=== PATIENT | female | born 1990 | race Caucasian/White ===

== ENCOUNTER 2018-02-14 20:19 | Emergency (ER) | payer BC, OTHER ==
[~2018-02-14] VITALS: Ht 190.5 cm; Wt 82.3 kg
[~2018-02-14 20:19] MED LIST: ALPR0.25 PO; CELE200C PO; DRON10CA5 PO; DULO60CA7 PO; FENT1PAT76; FLUD0.1T PO; GABA300C PO; HYDR-3237 PO; HYDR5TAB PO; INSU100V11; LEVO500T47 PO; MAGN400T7 PO; METO-40 PO; METO10TA2 PO; MTH/1CAP PO; NABU750T PO; NITR100C56 PO; PHEN100C PO; POTA20TA14 PO; PREG200C PO; PROC10TA2 PO; SUBC1EAC; SULF-169; TRAM-47 PO; ZOLP10TA3 PO
[2018-02-14 20:22] VITALS: BP 131/84
[2018-02-14] MEDS ORDERED: ONDANSETRON 2MG/ML, 2ML IVPush ONE (20:30)
[2018-02-14] MEDS ORDERED: SODIUM CHLORIDE FLUSH 10ML SYR IVF ONE (20:30)
[2018-02-14] MEDS ORDERED: SODIUM CHLORIDE 0.9% 1,000ML IVBOLUS ONE (20:30)
[2018-02-14 20:52] LABS: BASOPHILS % (AUTO) 0 % (0-1); EOSINOPHILS % (AUTO) 0 % (1-7); LYMPHOCYTES # (AUTO) 0.72 x10^3/uL (1-3.4); LYMPHOCYTES % (AUTO) 7 % (22-44); MD NO; MEAN CORPUSCULAR HEMOGLOBIN 29.7 pg (27.0-34.8); MEAN CORPUSCULAR HGB CONC 34.3 g/dL (32.4-35.8); MEAN CORPUSCULAR VOLUME 86.7 fL (80-100); MEAN PLATELET VOLUME 6.8 fL (7.4-10.4); MONOCYTES # (AUTO) 0.28 x10^3/uL (0.2-0.8); MONOCYTES % (AUTO) 3 % (2-9); NEUTROPHILS # (AUTO) 8.97 x10^3/uL (1.8-6.8); NEUTROPHILS % (AUTO) 90 % (42-75); PLATELET COUNT 272 x10^3/uL (130-400); RED BLOOD COUNT 4.14 x10^6/uL (3.82-5.3); RED CELL DISTRIBUTION WIDTH 13.6 % (9.6-15.2)
[2018-02-14] MEDS ORDERED: ONDANSETRON 2MG/ML, 2ML ONE (20:54)
[2018-02-14 21:03] LABS: ALANINE AMINOTRANSFERASE 26 U/L (12-78); ALBUMIN 3.3 g/dL (3.4-5.0); ANION GAP 11 mmol/L (5-15); CALCIUM 8.5 mg/dL (8.5-10.1); CHLORIDE 107 mmol/L (98-107); CREATININE 0.82 mg/dL (0.55-1.02)
[2018-02-14 21:20] LABS: ALKALINE PHOSPHATASE 49 U/L (45-117); BILIRUBIN,TOTAL 0.4 mg/dL (0.2-1.0); TOTAL PROTEIN 7.1 g/dL (6.4-8.2)
[2018-02-14] MEDS ORDERED: FAMOTIDINE 20 MG TABLET PO ONE (22:00)
[2018-02-14] MEDS ORDERED: METOCLOPRAMIDE 5 MG/ML, 2ML IVPush ONE (22:00)
[2018-02-14] MEDS ORDERED: FAMOTIDINE 20 MG TABLET ONE (22:24)
[2018-02-14] MEDS ORDERED: METOCLOPRAMIDE 5 MG/ML, 2ML ONE (22:24)
[2018-02-14 23:54] LABS: MICROSCOPIC AUTO
[2018-02-15 00:03] LABS: CULTURE INDICATED? NO
== END 2018-02-14 23:52 | disposition home or self-care (01) ==
LOC: ED 21:35
DX: O26.891 Other specified pregnancy related conditions, first trimester (principal); O24.311 Unspecified pre-existing diabetes mellitus in pregnancy, first trimester; Z3A.13 13 weeks gestation of pregnancy; R11.2 Nausea with vomiting, unspecified; E11.9 Type 2 diabetes mellitus without complications
CPT/HCPCS: 36415; 80053; 81001; 84702; 85025; 96361; 96374; 96375; 99284; J2405; J2765; J7030

== ENCOUNTER 2018-02-27 15:41 | Inpatient (IN) | payer BC ==
[~2018-02-27] VITALS: Ht 190.5 cm; Wt 81.1 kg
[2018-02-27 16:30] VITALS: BP 166/98
[2018-02-27 17:06] LABS: BASOPHILS # (AUTO) 0.01 x10^3/uL (0-0.1); BASOPHILS % (AUTO) 0 % (0-1); EOSINOPHILS # (AUTO) 0.03 x10^3/uL (0-0.4); EOSINOPHILS % (AUTO) 1 % (1-7); LYMPHOCYTES # (AUTO) 1.38 x10^3/uL (1-3.4); LYMPHOCYTES % (AUTO) 21 % (22-44); MD NO; MEAN CORPUSCULAR HEMOGLOBIN 29.7 pg (27.0-34.8); MEAN CORPUSCULAR HGB CONC 33.7 g/dL (32.4-35.8); MEAN CORPUSCULAR VOLUME 87.9 fL (80-100); MEAN PLATELET VOLUME 6.8 fL (7.4-10.4); MONOCYTES # (AUTO) 0.52 x10^3/uL (0.2-0.8); MONOCYTES % (AUTO) 8 % (2-9); NEUTROPHILS # (AUTO) 4.69 x10^3/uL (1.8-6.8); NEUTROPHILS % (AUTO) 71 % (42-75); PLATELET COUNT 268 x10^3/uL (130-400); RED BLOOD COUNT 3.98 x10^6/uL (3.82-5.3)
[2018-02-27] MEDS ORDERED: INSULIN PUMP SQ SCH (17:30)
[2018-02-27 17:38] LABS: MICROSCOPIC AUTO
[2018-02-27 17:55] LABS: ALBUMIN 3.4 g/dL (3.4-5.0); ANION GAP 6 mmol/L (5-15); CALCIUM 9.2 mg/dL (8.5-10.1); CHLORIDE 110 mmol/L (98-107); CREATININE 0.89 mg/dL (0.55-1.02)
[2018-02-27 18:06] LABS: ALANINE AMINOTRANSFERASE 23 U/L (12-78); ALKALINE PHOSPHATASE 52 U/L (45-117); BILIRUBIN,TOTAL 0.4 mg/dL (0.2-1.0); TOTAL PROTEIN 7.3 g/dL (6.4-8.2)
[2018-02-27] MEDS ORDERED: niFEDipine ER 30 MG TABLET.ER ONE (18:55)
[2018-02-27] MEDS ORDERED: niFEDipine ER 30 MG TABLET.ER PO ONE (19:00)
[2018-02-27] MEDS ORDERED: PRENATAL VIT/IRON/FA 1 EACH TABLET PO SCH (21:00)
[2018-02-27] MEDS: ASPIRIN 81 MG TABLET CHEW HOMEMEDPO SCH (22:42)
[2018-02-27] MEDS: METOCLOPRAMIDE 10MG TABLET HOMEMEDPO PRN (22:42)
[2018-02-28] MEDS ORDERED: ACETAMINOPHEN 325 MG TABLET ONE (06:47)
[2018-02-28] MEDS: ACETAMINOPHEN 325 MG TABLET PO PRN (06:48)
[2018-02-28 07:47] VITALS: BP 132/71
[2018-02-28] MEDS ORDERED: niFEDipine ER 30 MG TABLET.ER ONE (08:42)
[2018-02-28] MEDS: niFEDipine ER 30 MG TABLET.ER PO SCH ×2 (08:57→17:09)
[2018-02-28] MEDS ORDERED: PRENATAL VIT/IRON/FA 1 EACH TABLET PO SCH (09:00)
[2018-02-28] MEDS: METOCLOPRAMIDE 10MG TABLET HOMEMEDPO PRN ×3 (09:30→22:44)
[2018-02-28 09:34] VITALS: BP 145/91
[2018-02-28] MEDS: ASPIRIN 81 MG TABLET CHEW HOMEMEDPO SCH (21:00)
[2018-02-28] MEDS: PRENATAL VIT/IRON/FA 1 EACH TABLET PO SCH (22:44)
[2018-03-01] MEDS ORDERED: D5%-LACTATED RINGERS 1,000 ML IV SCH (06:00)
[2018-03-01 06:28] LABS: MICROSCOPIC AUTO
[2018-03-01] MEDS: METOCLOPRAMIDE 10MG TABLET HOMEMEDPO PRN ×3 (08:58→21:57)
[2018-03-01] MEDS ORDERED: niFEDipine ER 30 MG TABLET.ER ONE (17:12)
[2018-03-01] MEDS: niFEDipine ER 30 MG TABLET.ER PO SCH (17:13)
[2018-03-01] MEDS: SODIUM CHLORIDE FLUSH 3ML SYRINGE IVF SCH (21:00)
[2018-03-01] MEDS: ASPIRIN 81 MG TABLET CHEW HOMEMEDPO SCH (21:57)
[2018-03-01] MEDS: PRENATAL VIT/IRON/FA 1 EACH TABLET PO SCH (21:57)
[2018-03-02] MEDS: SODIUM CHLORIDE FLUSH 3ML SYRINGE IVF SCH ×2 (09:00→21:00)
[2018-03-02] MEDS ORDERED: niFEDipine ER 30 MG TABLET.ER ONE (18:55)
[2018-03-02] MEDS: niFEDipine ER 30 MG TABLET.ER PO SCH (18:58)
[2018-03-02] MEDS: PRENATAL VIT/IRON/FA 1 EACH TABLET PO SCH (22:11)
[2018-03-02] MEDS: METOCLOPRAMIDE 10MG TABLET HOMEMEDPO PRN (22:11)
[2018-03-03] MEDS: METOCLOPRAMIDE 10MG TABLET HOMEMEDPO PRN ×2 (06:20→23:20)
[2018-03-03 07:48] VITALS: BP 142/94
[2018-03-03] MEDS: SODIUM CHLORIDE FLUSH 3ML SYRINGE IVF SCH ×2 (09:00→21:00)
[2018-03-03] MEDS ORDERED: niFEDipine ER 30 MG TABLET.ER ONE (18:03)
[2018-03-03] MEDS: niFEDipine ER 30 MG TABLET.ER PO SCH (18:07)
[2018-03-03] MEDS: PRENATAL VIT/IRON/FA 1 EACH TABLET PO SCH (23:20)
[2018-03-03] MEDS: ASPIRIN 81 MG TABLET CHEW HOMEMEDPO SCH (23:20)
[2018-03-04] MEDS: SODIUM CHLORIDE FLUSH 3ML SYRINGE IVF SCH ×2 (09:00→21:00)
[2018-03-04] MEDS: METOCLOPRAMIDE 10MG TABLET HOMEMEDPO PRN ×2 (09:00→23:31)
[2018-03-04] MEDS ORDERED: niFEDipine ER 30 MG TABLET.ER ONE (19:15)
[2018-03-04] MEDS: niFEDipine ER 30 MG TABLET.ER PO SCH (19:17)
[2018-03-04] MEDS ORDERED: ACETAMINOPHEN 325 MG TABLET ONE (23:26)
[2018-03-04] MEDS: ASPIRIN 81 MG TABLET CHEW HOMEMEDPO SCH (23:30)
[2018-03-04] MEDS: ACETAMINOPHEN 325 MG TABLET PO PRN (23:30)
[2018-03-04] MEDS: PRENATAL VIT/IRON/FA 1 EACH TABLET PO SCH (23:31)
[2018-03-05] MEDS: METOCLOPRAMIDE 10MG TABLET HOMEMEDPO PRN ×2 (08:05→21:39)
[2018-03-05] MEDS: ASPIRIN 81 MG TABLET CHEW HOMEMEDPO SCH ×2 (08:07→21:39)
[2018-03-05] MEDS: SODIUM CHLORIDE FLUSH 3ML SYRINGE IVF SCH ×2 (10:15→21:39)
[2018-03-05] MEDS ORDERED: niFEDipine ER 30 MG TABLET.ER ONE (17:47)
[2018-03-05] MEDS: niFEDipine ER 30 MG TABLET.ER PO SCH (18:08)
[2018-03-05] MEDS: PRENATAL VIT/IRON/FA 1 EACH TABLET PO SCH (21:39)
[2018-03-06] MEDS: METOCLOPRAMIDE 10MG TABLET HOMEMEDPO PRN (07:21)
[2018-03-06] MEDS ORDERED: niFEDipine ER 30 MG TABLET.ER ONE (17:49)
[2018-03-06] MEDS: niFEDipine ER 30 MG TABLET.ER PO SCH (17:54)
[2018-03-06] MEDS: PRENATAL VIT/IRON/FA 1 EACH TABLET PO SCH (22:07)
[2018-03-06] MEDS: ASPIRIN 81 MG TABLET CHEW HOMEMEDPO SCH (22:07)
[2018-03-07] MEDS: METOCLOPRAMIDE 10MG TABLET HOMEMEDPO PRN (00:06)
[2018-03-07 09:12] VITALS: BP 121/81
[2018-03-07] MEDS: D5%-LACTATED RINGERS 1,000 ML IV SCH ×2 (12:00→22:00)
[2018-03-07] MEDS ORDERED: D5%-LACTATED RINGERS 1,000 ML IV SCH (12:00)
[2018-03-07] MEDS ORDERED: niFEDipine ER 30 MG TABLET.ER ONE (18:05)
[2018-03-07] MEDS: niFEDipine ER 30 MG TABLET.ER PO SCH (18:13)
[2018-03-07 20:15] VITALS: BP 135/90
[2018-03-07] MEDS: PRENATAL VIT/IRON/FA 1 EACH TABLET PO SCH (21:00)
[2018-03-07] MEDS: ASPIRIN 81 MG TABLET CHEW HOMEMEDPO SCH (21:00)
[2018-03-08] MEDS: METOCLOPRAMIDE 10MG TABLET HOMEMEDPO PRN (00:09)
[2018-03-08 07:00] VITALS: BP 122/79
[2018-03-08] MEDS ORDERED: METO10TA82 PO (10:58)
[2018-03-08] MEDS ORDERED: NIFE30TA2 PO (11:01)
[2018-03-08] MEDS ORDERED: GLUC1KIT IM (11:06)
== END 2018-03-08 11:40 | disposition home or self-care (01) | DRG 832 ==
LOC: LDOP 15:41 → LDIP 16:03
PROVIDERS: ADMIT Obstetrics & Gynecology; ATTEND Obstetrics & Gynecology
DX: O21.0 Mild hyperemesis gravidarum (principal); O16.2 Unspecified maternal hypertension, second trimester; O24.011 Pre-existing type 1 diabetes mellitus, in pregnancy, first trimester; E10.649 Type 1 diabetes mellitus with hypoglycemia without coma; Z3A.15 15 weeks gestation of pregnancy; Z96.41 Presence of insulin pump (external) (internal); E10.21 Type 1 diabetes mellitus with diabetic nephropathy; E10.319 Type 1 diabetes mellitus with unspecified diabetic retinopathy without macular edema; Z23 Encounter for immunization
CPT/HCPCS: 36415; J7121; 80053; 81001; 82947; 82962; 85025; 87086; 90656; G0378

== ENCOUNTER 2018-06-17 15:12 | Inpatient (IN) | payer BC ==
[~2018-06-17] VITALS: Ht 190.5 cm; Wt 94.4 kg
[~2018-06-17 15:12] MED LIST changes: +GLUC1KIT IM; +METO10TA82 PO; +NIFE30TA2 PO
[2018-06-17 15:45] VITALS: BP 175/98
[2018-06-17 16:27] LABS: MICROSCOPIC INDICATED
[2018-06-17 16:48] LABS: BASOPHILS # (AUTO) 0.02 x10^3/uL (0-0.1); BASOPHILS % (AUTO) 0 % (0-1); EOSINOPHILS # (AUTO) 0.02 x10^3/uL (0-0.4); EOSINOPHILS % (AUTO) 0 % (1-7); LYMPHOCYTES # (AUTO) 1.33 x10^3/uL (1-3.4); LYMPHOCYTES % (AUTO) 22 % (22-44); MD NO; MEAN CORPUSCULAR HEMOGLOBIN 31.3 pg (27.0-34.8); MEAN CORPUSCULAR HGB CONC 34.4 g/dL (32.4-35.8); MEAN CORPUSCULAR VOLUME 91.2 fL (80-100); MEAN PLATELET VOLUME 7.7 fL (7.4-10.4); MONOCYTES # (AUTO) 0.59 x10^3/uL (0.2-0.8); MONOCYTES % (AUTO) 10 % (2-9); NEUTROPHILS # (AUTO) 4.09 x10^3/uL (1.8-6.8); NEUTROPHILS % (AUTO) 68 % (42-75); PLATELET COUNT 186 x10^3/uL (130-400); RED BLOOD COUNT 3.25 x10^6/uL (3.82-5.3); RED CELL DISTRIBUTION WIDTH 13.1 % (9.6-15.2)
[2018-06-17 16:52] LABS: ALANINE AMINOTRANSFERASE 30 U/L (12-78); ALBUMIN 2.3 g/dL (3.4-5.0); ANION GAP 5 mmol/L (5-15); BILIRUBIN, DIRECT 0.1 mg/dL (0.1-0.2); CALCIUM 8.4 mg/dL (8.5-10.1); CHLORIDE 114 mmol/L (98-107); CREATININE 1.07 mg/dL (0.55-1.02)
[2018-06-17 16:56] LABS: ALKALINE PHOSPHATASE 71 U/L (45-117); BILIRUBIN,TOTAL 0.8 mg/dL (0.2-1.0)
[2018-06-17] MEDS: SODIUM CHLORIDE FLUSH 3ML SYRINGE IVF SCH (17:20)
[2018-06-17 17:25] LABS: ACETONE, SERUM Small (20mg/dL) mg/dL (Negative)
[2018-06-17] MEDS ORDERED: MAGNESIUM SULF. PMX 20GM/500ML 500 ML IV ONE (17:59)
[2018-06-17] MEDS ORDERED: MAGNESIUM SULFATE PMX 4GM/100M 100 ML IVPB ONE (18:00)
[2018-06-17] MEDS ORDERED: MAGNESIUM SULF. PMX 20GM/500ML 500 ML IV PRN (18:00)
[2018-06-17] MEDS ORDERED: MAGNESIUM SULF. PMX 20GM/500ML 500 ML IV SCH (18:00)
[2018-06-17] MEDS ORDERED: hydrALAzine 20 MG/ML, 1ML IVPush ONE (18:30)
[2018-06-17] MEDS ORDERED: LABETALOL 5MG/ML, 20ML IVPush PRN ×3 (18:30)
[2018-06-17] MEDS ORDERED: NIFEDIPINE 60 MG HOMEMEDPO SCH (21:00)
[2018-06-17] MEDS ORDERED: niFEDipine ER 60 MG TABLET.ER PO SCH (21:00)
[2018-06-17] MEDS: NIFEDIPINE 30 MG HOMEMEDPO SCH (22:10)
[2018-06-18] MEDS ORDERED: MAGNESIUM SULF. PMX 20GM/500ML 500 ML IV ONE ×2 (02:17→14:04)
[2018-06-18] MEDS: LACTATED RINGERS 1,000 ML IV SCH ×2 (02:20→16:27)
[2018-06-18 07:29] VITALS: BP 153/93
[2018-06-18] MEDS ORDERED: METOCLOPRAMIDE 10MG TABLET PO PRN (08:30)
[2018-06-18] MEDS ORDERED: SODIUM CHLORIDE NASAL SPRAY 45ML BOTTLE NAS PRN (09:00)
[2018-06-18] MEDS: LORATADINE 10 MG TABLET PO PRN (09:55)
[2018-06-18] MEDS: MAGNESIUM SULF. PMX 20GM/500ML 500 ML IV SCH (14:34)
[2018-06-18] MEDS: SODIUM CHLORIDE FLUSH 3ML SYRINGE IVF SCH ×2 (19:30→21:00)
[2018-06-18] MEDS ORDERED: ASPIRIN 325 MG TABLET PO SCH (21:00)
[2018-06-18] MEDS: ASPIRIN 81 MG TABLET EC HOMEMEDPO SCH (22:19)
[2018-06-18] MEDS: PRENATAL VIT/IRON/FA 1 EACH TABLET PO SCH (22:19)
[2018-06-18] MEDS: NIFEDIPINE 30 MG HOMEMEDPO SCH (22:20)
[2018-06-18] MEDS: METOCLOPRAMIDE 10MG TABLET PO PRN (22:20)
[2018-06-19] MEDS ORDERED: MAGNESIUM SULF. PMX 20GM/500ML 500 ML IV ONE (03:51)
[2018-06-19] MEDS: MAGNESIUM SULF. PMX 20GM/500ML 500 ML IV SCH (03:53)
[2018-06-19] MEDS: LACTATED RINGERS 1,000 ML IV SCH (03:54)
[2018-06-19] MEDS: niFEDipine ER 30 MG TABLET.ER PO SCH ×2 (06:59→09:00)
[2018-06-19] MEDS: LORATADINE 10 MG TABLET PO PRN (07:26)
[2018-06-19] MEDS: SODIUM CHLORIDE FLUSH 3ML SYRINGE IVF SCH ×2 (09:00→21:00)
[2018-06-19] MEDS ORDERED: niFEDipine ER 30 MG TABLET.ER PO ONE (19:30)
[2018-06-19] MEDS ORDERED: DIPHENHYDRAMINE 25 MG CAPSULE PO PRN (21:00)
[2018-06-19] MEDS: niFEDipine ER 30 MG TABLET.ER HOMEMEDPO SCH (21:00)
[2018-06-19] MEDS ORDERED: hydrALAzine 20 MG/ML, 1ML IVPush ONE ×2 (22:00)
[2018-06-19] MEDS ORDERED: LABETALOL 5MG/ML 40ML VIAL IVPush ONE (22:00)
[2018-06-19] MEDS: ASPIRIN 81 MG TABLET EC HOMEMEDPO SCH (22:05)
[2018-06-19] MEDS: PRENATAL VIT/IRON/FA 1 EACH TABLET PO SCH (22:06)
[2018-06-20] MEDS ORDERED: niFEDipine ER 60 MG TABLET.ER PO SCH (09:00)
[2018-06-20] MEDS: SODIUM CHLORIDE FLUSH 3ML SYRINGE IVF SCH ×2 (09:00→21:00)
[2018-06-20] MEDS: niFEDipine ER 30 MG TABLET.ER PO SCH (09:00)
[2018-06-20 09:11] VITALS: BP 151/90
[2018-06-20] MEDS: LORATADINE 10 MG TABLET PO PRN (09:57)
[2018-06-20] MEDS: ASPIRIN 81 MG TABLET EC HOMEMEDPO SCH (22:53)
[2018-06-20] MEDS: niFEDipine ER 30 MG TABLET.ER HOMEMEDPO SCH (22:53)
[2018-06-20] MEDS: PRENATAL VIT/IRON/FA 1 EACH TABLET PO SCH (22:54)
[2018-06-21] MEDS: SODIUM CHLORIDE FLUSH 3ML SYRINGE IVF SCH (08:00)
[2018-06-21] MEDS ORDERED: niFEDipine ER 60 MG TABLET.ER PO ONE (08:55)
[2018-06-21] MEDS: LORATADINE 10 MG TABLET PO PRN (11:06)
[2018-06-21] MEDS: PRENATAL VIT/IRON/FA 1 EACH TABLET PO SCH (11:06)
[2018-06-21] MEDS: ASPIRIN 81 MG TABLET EC HOMEMEDPO SCH (11:07)
[2018-06-21] MEDS: METOCLOPRAMIDE 10MG TABLET PO PRN (11:07)
[2018-06-21] MEDS ORDERED: hydrALAzine 20 MG/ML, 1ML IV ONE (17:00)
[2018-06-21] MEDS ORDERED: MAGNESIUM SULFATE PMX 4GM/100M 100 ML ONE (18:21)
[2018-06-21] MEDS ORDERED: MAGNESIUM SULF. PMX 20GM/500ML 500 ML IV ONE (18:21)
[2018-06-21] MEDS: MAGNESIUM SULF. PMX 20GM/500ML 500 ML IV SCH (18:49)
[2018-06-21] MEDS: LACTATED RINGERS 1,000 ML IV SCH (18:50)
[2018-06-21] MEDS ORDERED: ONDANSETRON 2MG/ML, 2ML ONE ×2 (18:53→23:01)
[2018-06-21] MEDS: ONDANSETRON 2MG/ML, 2ML IVPush PRN ×2 (18:55→23:02)
[2018-06-21] MEDS ORDERED: MAGNESIUM SULFATE PMX 4GM/100M 100 ML IVPB ONE (19:00)
[2018-06-21 19:17] LABS: BASOPHILS # (AUTO) 0.02 x10^3/uL (0-0.1); BASOPHILS % (AUTO) 0 % (0-1); EOSINOPHILS # (AUTO) 0.09 x10^3/uL (0-0.4); EOSINOPHILS % (AUTO) 2 % (1-7); LYMPHOCYTES # (AUTO) 1.19 x10^3/uL (1-3.4); LYMPHOCYTES % (AUTO) 20 % (22-44); MD NO; MEAN CORPUSCULAR HEMOGLOBIN 31.7 pg (27.0-34.8); MEAN CORPUSCULAR HGB CONC 34.8 g/dL (32.4-35.8); MEAN PLATELET VOLUME 7.7 fL (7.4-10.4); MONOCYTES # (AUTO) 0.74 x10^3/uL (0.2-0.8); MONOCYTES % (AUTO) 13 % (2-9); NEUTROPHILS # (AUTO) 3.79 x10^3/uL (1.8-6.8); NEUTROPHILS % (AUTO) 65 % (42-75); PLATELET COUNT 161 x10^3/uL (130-400); RED BLOOD COUNT 3.55 x10^6/uL (3.82-5.3); RED CELL DISTRIBUTION WIDTH 13.5 % (9.6-15.2)
[2018-06-21 19:25] LABS: ALANINE AMINOTRANSFERASE 60 U/L (12-78); ALBUMIN 2.3 g/dL (3.4-5.0); ANION GAP 7 mmol/L (5-15); CALCIUM 8.9 mg/dL (8.5-10.1); CHLORIDE 113 mmol/L (98-107); CREATININE 0.98 mg/dL (0.55-1.02)
[2018-06-21 19:27] LABS: ALKALINE PHOSPHATASE 92 U/L (45-117); BILIRUBIN,TOTAL 0.6 mg/dL (0.2-1.0); TOTAL PROTEIN 6.2 g/dL (6.4-8.2)
[2018-06-21] MEDS: niFEDipine ER 30 MG TABLET.ER HOMEMEDPO SCH (20:59)
[2018-06-21 21:21] LABS: ACETONE, URINE Small (20mg/dL) (Negative)
[2018-06-22] MEDS ORDERED: METOCLOPRAMIDE 5 MG/ML, 2ML ONE ×3 (00:14→13:26)
[2018-06-22] MEDS ORDERED: METOCLOPRAMIDE 5 MG/ML, 2ML IVPush ONE ×2 (00:30→10:00)
[2018-06-22 00:33] LABS: ACETONE, URINE Moderate(40mg/dL) (Negative)
[2018-06-22] MEDS ORDERED: D5%-LACTATED RINGERS 1,000 ML IV SCH ×3 (00:45→10:30)
[2018-06-22] MEDS: PROMETHAZINE 25 MG/ML, 1ML IM PRN ×3 (01:47→20:07)
[2018-06-22 03:31] LABS: ACETONE, URINE Moderate(40mg/dL) (Negative)
[2018-06-22 05:27] LABS: ACETONE, URINE Moderate(40mg/dL) (Negative)
[2018-06-22] MEDS ORDERED: ONDANSETRON 2MG/ML, 2ML ONE ×4 (05:35→15:59)
[2018-06-22] MEDS ORDERED: MAGNESIUM SULF. PMX 20GM/500ML 500 ML IV ONE (05:36)
[2018-06-22] MEDS: ONDANSETRON 2MG/ML, 2ML IVPush PRN ×3 (05:38→22:13)
[2018-06-22] MEDS: MAGNESIUM SULF. PMX 20GM/500ML 500 ML IV SCH (05:40)
[2018-06-22 07:34] LABS: ALANINE AMINOTRANSFERASE 60 U/L (12-78); ALBUMIN 2.1 g/dL (3.4-5.0); ANION GAP 15 mmol/L (5-15); CALCIUM 8.3 mg/dL (8.5-10.1); CHLORIDE 108 mmol/L (98-107); CREATININE 1.24 mg/dL (0.55-1.02)
[2018-06-22 07:37] LABS: ALKALINE PHOSPHATASE 89 U/L (45-117); BILIRUBIN,TOTAL 0.8 mg/dL (0.2-1.0); TOTAL PROTEIN 6.1 g/dL (6.4-8.2)
[2018-06-22] MEDS: PRENATAL VIT/IRON/FA 1 EACH TABLET PO SCH (09:00)
[2018-06-22] MEDS ORDERED: REGULAR INSULIN 62.5 UNITS in SODIUM CHLORIDE 0.9% 249.375 ML IV PRN (10:30)
[2018-06-22 12:42] LABS: ALBUMIN 2.1 g/dL (3.4-5.0); ANION GAP 15 mmol/L (5-15); CALCIUM 8.3 mg/dL (8.5-10.1); CHLORIDE 108 mmol/L (98-107)
[2018-06-22 12:44] LABS: ALANINE AMINOTRANSFERASE 59 U/L (12-78); ALKALINE PHOSPHATASE 90 U/L (45-117); BILIRUBIN,TOTAL 0.8 mg/dL (0.2-1.0); CREATININE 1.42 mg/dL (0.55-1.02); TOTAL PROTEIN 6.1 g/dL (6.4-8.2)
[2018-06-22 13:19] LABS: BASOPHILS # (AUTO) 0.01 x10^3/uL (0-0.1); BASOPHILS % (AUTO) 0 % (0-1); EOSINOPHILS % (AUTO) 0 % (1-7); LYMPHOCYTES # (AUTO) 0.93 x10^3/uL (1-3.4); LYMPHOCYTES % (AUTO) 7 % (22-44); MD SCAN; MEAN CORPUSCULAR HEMOGLOBIN 30.6 pg (27.0-34.8); MEAN CORPUSCULAR HGB CONC 33.2 g/dL (32.4-35.8); MEAN CORPUSCULAR VOLUME 92.1 fL (80-100); MEAN PLATELET VOLUME 8.1 fL (7.4-10.4); MONOCYTES # (AUTO) 0.67 x10^3/uL (0.2-0.8); MONOCYTES % (AUTO) 5 % (2-9); NEUTROPHILS % (AUTO) 89 % (42-75); PLATELET COUNT 195 x10^3/uL (130-400); RED BLOOD COUNT 3.55 x10^6/uL (3.82-5.3); RED CELL DISTRIBUTION WIDTH 13.7 % (9.6-15.2)
[2018-06-22] MEDS ORDERED: NEWBORN KIT ONE (13:24)
[2018-06-22] MEDS ORDERED: OXYTOCIN 30U/ 0.9% NaCL 500ML 500 ML ONE (13:24)
[2018-06-22] MEDS ORDERED: SODIUM CITRATE/CITRIC ACID 30 ML UDC ONE (13:26)
[2018-06-22] MEDS ORDERED: METOCLOPRAMIDE 5 MG/ML, 2ML IV ONE (13:30)
[2018-06-22] MEDS ORDERED: LACTATED RINGERS 1,000 ML IVBOLUS ONE (13:30)
[2018-06-22] MEDS ORDERED: ONDANSETRON 2MG/ML, 2ML IVPush ONE (13:30)
[2018-06-22] MEDS ORDERED: SODIUM CITRATE/CITRIC ACID 30 ML UDC PO ONE (13:30)
[2018-06-22] MEDS: LACTATED RINGERS 1,000 ML IV SCH (13:33)
[2018-06-22] MEDS ORDERED: DEXAMETHASONE 4 MG/ML, 1ML ONE (13:58)
[2018-06-22] MEDS ORDERED: KETOROLAC 30 MG/1 ML ONE (13:58)
[2018-06-22] MEDS ORDERED: FENTANYL PF 100 MCG/2ML ONE ×3 (13:58→15:59)
[2018-06-22] MEDS ORDERED: OXYTOCIN 10 UNITS/ML, 1ML ONE (13:58)
[2018-06-22] MEDS ORDERED: PHENYLEPHRINE 10 MG/ML ONE (13:58)
[2018-06-22] MEDS ORDERED: CEFAZOLIN 1,000 MG ONE (13:58)
[2018-06-22] MEDS ORDERED: EPHEDRINE 50 MG/ML, 1ML ONE (13:58)
[2018-06-22] MEDS ORDERED: SODIUM BICARBONATE 1 MEQ/ML, 50ML VIAL ONE (13:58)
[2018-06-22] MEDS ORDERED: HYDROcodone/APAP 7.5-325MG/15ML UDC PO PRN (14:00)
[2018-06-22] MEDS ORDERED: FENTANYL PF 100 MCG/2ML IV PRN ×2 (14:00→16:30)
[2018-06-22] MEDS ORDERED: MEPERIDINE/PF 25MG/0.5ML IVPush PRN (14:00)
[2018-06-22] MEDS ORDERED: ALBUTEROL SULFATE 2.5 MG/3 ML NPPB PRN (14:00)
[2018-06-22] MEDS ORDERED: hydrALAzine 20 MG/ML, 1ML IV PRN (14:00)
[2018-06-22] MEDS ORDERED: ONDANSETRON 2MG/ML, 2ML IVPush PRN (14:00)
[2018-06-22] MEDS ORDERED: LABETALOL 5MG/ML, 20ML IV PRN (14:00)
[2018-06-22] MEDS ORDERED: EPHEDRINE 50 MG/ML, 1ML IVPush PRN (14:00)
[2018-06-22] MEDS ORDERED: PROMETHAZINE 25 MG/ML, 1ML IV PRN (14:00)
[2018-06-22] MEDS ORDERED: OXYcodone 5 MG/5 ML ORAL.SOL UDC PO PRN (14:00)
[2018-06-22] MEDS ORDERED: SUCCINYLCHOLINE 20 MG/ML, 10ML ONE (14:29)
[2018-06-22] MEDS ORDERED: PROPOFOL 10 MG/ML, 20ML ONE ×2 (14:29)
[2018-06-22] MEDS ORDERED: LIDOCAINE-MPF 2% ,5ML ONE (14:29)
[2018-06-22] MEDS ORDERED: SODIUM CHLORIDE 0.9% 1,000 ML IV SCH (14:30)
[2018-06-22] MEDS: SODIUM CHLORIDE 0.9% 1,000 ML IV SCH ×2 (14:33→18:00)
[2018-06-22] MEDS ORDERED: HYDROmorphone 1 MG/ML, 1ML ONE ×2 (16:00→16:42)
[2018-06-22] MEDS: HYDROmorphone 2 MG/ML, 1ML IVPush PRN ×7 (16:07→17:00)
[2018-06-22] MEDS ORDERED: INSULIN LISPRO 100 UNITS/ML, PEN SQ-INSULIN SCH (16:30)
[2018-06-22] MEDS ORDERED: LABETALOL 5MG/ML, 20ML IVPush PRN (16:30)
[2018-06-22] MEDS ORDERED: MISOPROSTOL 200 MCG TABLET PR PRN (16:30)
[2018-06-22 16:35] LABS: O2 FLOW 2 L/min
[2018-06-22 16:45] LABS: ALANINE AMINOTRANSFERASE 50 U/L (12-78); ANION GAP 14 mmol/L (5-15); CALCIUM 7.6 mg/dL (8.5-10.1); CHLORIDE 111 mmol/L (98-107); CREATININE 1.42 mg/dL (0.55-1.02)
[2018-06-22 16:47] LABS: ALKALINE PHOSPHATASE 78 U/L (45-117); BILIRUBIN,TOTAL 0.7 mg/dL (0.2-1.0); TOTAL PROTEIN 5.6 g/dL (6.4-8.2)
[2018-06-22 17:09] LABS: ACETONE, SERUM Large (80mg/dL) mg/dL (Negative)
[2018-06-22] MEDS: INSULIN LISPRO 100 UNITS/ML, PEN SQ-INSULIN SCH ×2 (18:00→20:30)
[2018-06-22] MEDS: OXYTOCIN 30U/ 0.9% NaCL 500ML 500 ML IV SCH (18:27)
[2018-06-22] MEDS ORDERED: HYDROmorphone 2 MG/ML, 1ML ONE (19:58)
[2018-06-22] MEDS ORDERED: HYDROmorphone 1 MG/ML, 1ML IV PRN (20:00)
[2018-06-22] MEDS ORDERED: OXYcodone/APAP 5/325MG TABLET PO PRN (20:00)
[2018-06-22] MEDS ORDERED: INSULIN GLARGINE 100 UNITS/ML, PEN SQ-INSULIN SCH (21:00)
[2018-06-22] MEDS: niFEDipine ER 90 MG TAB.ER.24 HOMEMEDPO SCH (21:00)
[2018-06-22] MEDS ORDERED: HYDROmorphone 2 MG/ML, 1ML IV PRN (22:00)
[2018-06-23] MEDS: INSULIN LISPRO 100 UNITS/ML, PEN SQ-INSULIN SCH ×2 (00:30→04:30)
[2018-06-23] MEDS: SODIUM CHLORIDE 0.9% 1,000 ML IV SCH ×3 (00:32→22:33)
[2018-06-23] MEDS: OXYTOCIN 30U/ 0.9% NaCL 500ML 500 ML IV SCH ×2 (02:27→12:27)
[2018-06-23] MEDS: METOCLOPRAMIDE 5 MG/ML, 2ML IVPush PRN ×4 (02:43→21:28)
[2018-06-23 04:00] VITALS: BP 168/102
[2018-06-23] MEDS: ONDANSETRON 2MG/ML, 2ML IVPush PRN ×4 (04:33→23:17)
[2018-06-23 07:00] LABS: BASOPHILS # (AUTO) 0.01 x10^3/uL (0-0.1); BASOPHILS % (AUTO) 0 % (0-1); EOSINOPHILS % (AUTO) 0 % (1-7); LYMPHOCYTES # (AUTO) 0.76 x10^3/uL (1-3.4); LYMPHOCYTES % (AUTO) 5 % (22-44); MD NO; MEAN CORPUSCULAR HEMOGLOBIN 31.7 pg (27.0-34.8); MEAN CORPUSCULAR HGB CONC 34.3 g/dL (32.4-35.8); MEAN CORPUSCULAR VOLUME 92.4 fL (80-100); MEAN PLATELET VOLUME 7.4 fL (7.4-10.4); MONOCYTES # (AUTO) 1.36 x10^3/uL (0.2-0.8); MONOCYTES % (AUTO) 10 % (2-9); NEUTROPHILS # (AUTO) 12.16 x10^3/uL (1.8-6.8); NEUTROPHILS % (AUTO) 85 % (42-75); PLATELET COUNT 240 x10^3/uL (130-400); RED BLOOD COUNT 3.48 x10^6/uL (3.82-5.3)
[2018-06-23 07:04] LABS: ALANINE AMINOTRANSFERASE 50 U/L (12-78); ALBUMIN 2.1 g/dL (3.4-5.0); ANION GAP 4 mmol/L (5-15); CALCIUM 7.5 mg/dL (8.5-10.1); CHLORIDE 115 mmol/L (98-107)
[2018-06-23 07:06] LABS: ALKALINE PHOSPHATASE 84 U/L (45-117); BILIRUBIN,TOTAL 0.6 mg/dL (0.2-1.0); TOTAL PROTEIN 5.9 g/dL (6.4-8.2)
[2018-06-23] MEDS: PRENATAL VIT/IRON/FA 1 EACH TABLET PO SCH (09:00)
[2018-06-23] MEDS: PROMETHAZINE 25 MG/ML, 1ML IM PRN ×2 (11:11→21:28)
[2018-06-23 11:30] VITALS: BP 167/93
[2018-06-23 12:25] VITALS: BP 133/77
[2018-06-23] MEDS ORDERED: SCOPOLAMINE PATCH, 1.5MG PATCH.TD72 TD ONE (15:30)
[2018-06-23] MEDS: OMEPRAZOLE 20 MG CAPSULE.DR PO SCH (16:45)
[2018-06-23 19:40] VITALS: BP 141/87
[2018-06-23] MEDS ORDERED: niFEDipine ER 30 MG TABLET.ER ONE (20:55)
[2018-06-23] MEDS ORDERED: niFEDipine ER 60 MG TABLET.ER PO ONE (20:55)
[2018-06-23] MEDS: niFEDipine ER 90 MG TAB.ER.24 HOMEMEDPO SCH (21:00)
[2018-06-23] MEDS ORDERED: MEPERIDINE/PF 50 MG/ML IM PRN (22:00)
[2018-06-23] MEDS ORDERED: HYDROcodone/APAP 10/325 MG TABLET PO PRN (22:30)
[2018-06-23 23:55] VITALS: BP 166/108
[2018-06-24] VITALS (7 sets, daily range): BP systolic 122–168; BP diastolic 78–115
[2018-06-24 00:39] LABS: BASOPHILS % (AUTO) 0 % (0-1); EOSINOPHILS # (AUTO) 0.27 x10^3/uL (0-0.4); EOSINOPHILS % (AUTO) 2 % (1-7); LYMPHOCYTES % (AUTO) 5 % (22-44); MD NO; MEAN CORPUSCULAR HEMOGLOBIN 31.5 pg (27.0-34.8); MEAN CORPUSCULAR HGB CONC 34.2 g/dL (32.4-35.8); MEAN CORPUSCULAR VOLUME 92.1 fL (80-100); MEAN PLATELET VOLUME 6.9 fL (7.4-10.4); MONOCYTES # (AUTO) 1.04 x10^3/uL (0.2-0.8); MONOCYTES % (AUTO) 9 % (2-9); NEUTROPHILS # (AUTO) 9.79 x10^3/uL (1.8-6.8); NEUTROPHILS % (AUTO) 84 % (42-75); PLATELET COUNT 233 x10^3/uL (130-400); RED BLOOD COUNT 3.25 x10^6/uL (3.82-5.3); RED CELL DISTRIBUTION WIDTH 13.8 % (9.6-15.2)
[2018-06-24 00:50] LABS: ALBUMIN 1.9 g/dL (3.4-5.0); ANION GAP 5 mmol/L (5-15); CALCIUM 7.1 mg/dL (8.5-10.1); CHLORIDE 116 mmol/L (98-107)
[2018-06-24 00:54] LABS: ALANINE AMINOTRANSFERASE 51 U/L (12-78); ALKALINE PHOSPHATASE 76 U/L (45-117); BILIRUBIN,TOTAL 0.4 mg/dL (0.2-1.0); CREATININE 1.16 mg/dL (0.55-1.02); TOTAL PROTEIN 5.6 g/dL (6.4-8.2)
[2018-06-24 00:55] LABS: MICROSCOPIC INDICATED
[2018-06-24 01:09] LABS: ACETONE, SERUM Negative (Negative)
[2018-06-24] MEDS: LABETALOL 5 MG/ML SYRINGE IVPush PRN ×2 (01:12→15:33)
[2018-06-24] MEDS: D5%-LACTATED RINGERS 1,000 ML IV SCH ×2 (01:54→10:00)
[2018-06-24] MEDS: METOCLOPRAMIDE 5 MG/ML, 2ML IVPush PRN ×3 (03:28→21:49)
[2018-06-24] MEDS: ONDANSETRON 2MG/ML, 2ML IVPush PRN (05:36)
[2018-06-24] MEDS: SODIUM CHLORIDE 0.9% 1,000 ML IV SCH (06:33)
[2018-06-24] MEDS ORDERED: chlorPROMAZINE 25 MG/ML, 2ML IVPush PRN (09:30)
[2018-06-24 10:27] LABS: BASOPHILS # (AUTO) 0.01 x10^3/uL (0-0.1); BASOPHILS % (AUTO) 0 % (0-1); EOSINOPHILS % (AUTO) 0 % (1-7); LYMPHOCYTES % (AUTO) 9 % (22-44); MD NO; MEAN CORPUSCULAR HEMOGLOBIN 30.4 pg (27.0-34.8); MEAN CORPUSCULAR HGB CONC 32.7 g/dL (32.4-35.8); MEAN CORPUSCULAR VOLUME 93.1 fL (80-100); MEAN PLATELET VOLUME 6.8 fL (7.4-10.4); MONOCYTES # (AUTO) 1.14 x10^3/uL (0.2-0.8); MONOCYTES % (AUTO) 11 % (2-9); NEUTROPHILS # (AUTO) 8.34 x10^3/uL (1.8-6.8); NEUTROPHILS % (AUTO) 80 % (42-75); PLATELET COUNT 248 x10^3/uL (130-400); RED BLOOD COUNT 3.01 x10^6/uL (3.82-5.3)
[2018-06-24] MEDS: chlorPROMAZINE 25 MG/ML, 2ML IM PRN ×2 (10:28→17:11)
[2018-06-24 10:38] LABS: ALANINE AMINOTRANSFERASE 53 U/L (12-78); ALBUMIN 1.7 g/dL (3.4-5.0); ANION GAP 5 mmol/L (5-15); CALCIUM 6.8 mg/dL (8.5-10.1); CHLORIDE 119 mmol/L (98-107); CREATININE 1.08 mg/dL (0.55-1.02)
[2018-06-24 10:40] LABS: ALKALINE PHOSPHATASE 67 U/L (45-117); BILIRUBIN,TOTAL 0.3 mg/dL (0.2-1.0)
[2018-06-24] MEDS ORDERED: DEXTROSE 10%, 1,000ML IVPB SCH (11:00)
[2018-06-24] MEDS ORDERED: DEXTROSE 50%, 50ML SYRINGE ONE (11:08)
[2018-06-24] MEDS ORDERED: DEXTROSE 10% 1,000 ML IV SCH (11:30)
[2018-06-24] MEDS: OMEPRAZOLE 20 MG CAPSULE.DR PO SCH ×2 (11:37→16:00)
[2018-06-24] MEDS: PRENATAL VIT/IRON/FA 1 EACH TABLET PO SCH (11:38)
[2018-06-24] MEDS ORDERED: chlorPROMAZINE 25 MG/ML, 2ML IM PRN (15:30)
[2018-06-24] MEDS: OXYMETAZOLINE NASAL SPRAY 0.05%, 15ML NAS PRN ×2 (17:12→22:03)
[2018-06-24] MEDS: niFEDipine ER 90 MG TAB.ER.24 HOMEMEDPO SCH (22:05)
[2018-06-25] MEDS ORDERED: GLUCAGON 1 MG IM PRN (02:00)
[2018-06-25] MEDS ORDERED: DEXTROSE 4 GM TAB.CHEW PO PRN (02:00)
[2018-06-25] MEDS ORDERED: D5%-LACTATED RINGERS 1,000 ML IV SCH ×2 (02:00)
[2018-06-25] MEDS ORDERED: DEXTROSE 50%, 50ML SYRINGE IVPush PRN (02:00)
[2018-06-25] MEDS: chlorPROMAZINE 25 MG/ML, 2ML IM PRN (02:21)
[2018-06-25 02:29] VITALS: BP 154/89
[2018-06-25] MEDS: OMEPRAZOLE 20 MG CAPSULE.DR PO SCH ×2 (06:16→17:16)
[2018-06-25] MEDS: METOCLOPRAMIDE 5 MG/ML, 2ML IVPush PRN (06:37)
[2018-06-25 07:07] LABS: ANION GAP 5 mmol/L (5-15); CALCIUM 6.7 mg/dL (8.5-10.1); CHLORIDE 116 mmol/L (98-107); CREATININE 0.99 mg/dL (0.55-1.02)
[2018-06-25 07:30] VITALS: BP 138/86
[2018-06-25] MEDS: PRENATAL VIT/IRON/FA 1 EACH TABLET PO SCH (09:41)
[2018-06-25] MEDS: SODIUM CHLORIDE FLUSH 10ML SYR IVF SCH ×2 (09:41→20:14)
[2018-06-25 11:20] VITALS: BP 140/64
[2018-06-25 12:40] VITALS: BP 137/82
[2018-06-25] MEDS: D5%-0.45% NACL 1,000 ML IV SCH ×2 (14:13→20:12)
[2018-06-25 19:30] VITALS: BP 166/100
[2018-06-25] MEDS ORDERED: niFEDipine ER 90 MG TAB.ER.24 PO SCH (21:00)
[2018-06-25] MEDS: HYDROcodone/APAP 5/325 TABLET PO PRN (22:58)
[2018-06-26] MEDS: HYDROcodone/APAP 5/325 TABLET PO PRN ×4 (04:15→16:44)
[2018-06-26 04:26] VITALS: BP 151/92
[2018-06-26] MEDS: OMEPRAZOLE 20 MG CAPSULE.DR PO SCH (06:41)
[2018-06-26] MEDS: SODIUM CHLORIDE FLUSH 10ML SYR IVF SCH ×2 (09:00→23:09)
[2018-06-26] MEDS ORDERED: HYDROcodone/APAP 5/325 TABLET ONE ×4 (09:40→16:41)
[2018-06-26 10:36] VITALS: BP 155/90
[2018-06-26 19:00] LABS: MICROSCOPIC AUTO
[2018-06-26 19:05] LABS: ANION GAP 5 mmol/L (5-15); CALCIUM 7.8 mg/dL (8.5-10.1); CHLORIDE 110 mmol/L (98-107); CREATININE 0.79 mg/dL (0.55-1.02)
[2018-06-26 19:15] LABS: CULTURE INDICATED? YES
[2018-06-26] MEDS ORDERED: HYDROcodone/APAP 10/325 MG TABLET ONE (20:18)
[2018-06-26] MEDS ORDERED: niFEDipine ER 30 MG TABLET.ER ONE (20:18)
[2018-06-26] MEDS ORDERED: niFEDipine ER 60 MG TABLET.ER PO ONE (20:19)
[2018-06-26] MEDS ORDERED: FAMOTIDINE 20 MG TABLET ONE (20:19)
[2018-06-27] MEDS ORDERED: DOCUSATE 100 MG CAPSULE ONE ×2 (07:09→08:10)
[2018-06-27] MEDS ORDERED: HYDROcodone/APAP 5/325 TABLET ONE ×2 (07:09→15:14)
[2018-06-27] MEDS: HYDROcodone/APAP 5/325 TABLET PO PRN ×2 (07:11→15:15)
[2018-06-27] MEDS ORDERED: PRENATAL VIT/IRON/FA 1 EACH TABLET ONE (08:10)
[2018-06-27 08:22] VITALS: BP 159/97
[2018-06-27] MEDS ORDERED: POLYETHYLENE GLYCOL 17 GM PACKET PO SCH (09:00)
[2018-06-27] MEDS ORDERED: DOCUSATE 100 MG CAPSULE PO SCH (09:00)
[2018-06-27] MEDS ORDERED: ONDANSETRON ODT 4 MG ONE ×2 (09:11→14:16)
[2018-06-27] MEDS: ONDANSETRON ODT 4 MG PO PRN ×2 (09:14→14:20)
[2018-06-27 09:25] VITALS: BP 162/98
[2018-06-27] MEDS ORDERED: LABETALOL 200 MG TABLET ONE (09:49)
[2018-06-27] MEDS ORDERED: BISACODYL 10 MG SUPP PR PRN (10:00)
[2018-06-27 12:23] VITALS: BP 134/78
[2018-06-27] MEDS ORDERED: HYDR-3240 PO (13:18)
[2018-06-27] MEDS ORDERED: IBUP-1222 PO (13:18)
[2018-06-27] MEDS ORDERED: NIFE90TA PO (13:18)
[2018-06-27] MEDS ORDERED: LABE200T6 PO (13:19)
[2018-06-27] MEDS ORDERED: LABETALOL 200 MG TABLET PO SCH (18:00)
== END 2018-06-27 16:35 | disposition home or self-care (01) | DRG 786 ==
LOC: LDOP 15:12 → INTOOBSV 16:46 → OBSVTOIN 16:46 → EDIP 16:46 → LDIP 16:47 → OBSVTOIN 06-19 14:07 → CCU 06-22 17:39 → 2NE 06-23 10:15 → 4NOR 06-24 13:46 → 2NE 06-26 08:35
PROVIDERS: ADMIT Obstetrics & Gynecology; ATTEND Obstetrics & Gynecology
PROC: 10D00Z1 Extraction of Products of Conception, Low, Open Approach (ICD-10-PCS; principal; 2018-06-22 17:30)
PROC: 02HV33Z Insertion of Infusion Device into Superior Vena Cava, Percutaneous Approach (ICD-10-PCS; 2018-06-24)
PROC: B5181ZA Fluoroscopy of Superior Vena Cava using Low Osmolar Contrast, Guidance (ICD-10-PCS; 2018-06-24)
PROC: 3E0436Z Introduction of Nutritional Substance into Central Vein, Percutaneous Approach (ICD-10-PCS; 2018-06-24)
PROC: B548ZZA Ultrasonography of Superior Vena Cava, Guidance (ICD-10-PCS; 2018-06-24)
DX: O14.14 Severe pre-eclampsia complicating childbirth (principal); E10.10 Type 1 diabetes mellitus with ketoacidosis without coma; N17.0 Acute kidney failure with tubular necrosis; E43 Unspecified severe protein-calorie malnutrition; O26.833 Pregnancy related renal disease, third trimester; O99.12 Other diseases of the blood and blood-forming organs and certain disorders involving the immune mechanism complicating childbirth; K92.2 Gastrointestinal hemorrhage, unspecified; O69.81X0 Labor and delivery complicated by cord around neck, without compression, not applicable or unspecified; O99.284 Endocrine, nutritional and metabolic diseases complicating childbirth; O25.2 Malnutrition in childbirth; E10.319 Type 1 diabetes mellitus with unspecified diabetic retinopathy without macular edema; E10.21 Type 1 diabetes mellitus with diabetic nephropathy; E04.1 Nontoxic single thyroid nodule; E10.649 Type 1 diabetes mellitus with hypoglycemia without coma; Z37.0 Single live birth; Z79.4 Long term (current) use of insulin; Z80.42 Family history of malignant neoplasm of prostate; Z3A.31 31 weeks gestation of pregnancy; Z96.41 Presence of insulin pump (external) (internal); O99.63 Diseases of the digestive system complicating the puerperium; Z68.26 Body mass index [BMI] 26.0-26.9, adult; O99.02 Anemia complicating childbirth; D64.9 Anemia, unspecified
CPT/HCPCS: 36415; 36600; J7121; 36573; 76770; 80048; 80053; 81001; 81050; 82009; 82010; 82248; 82570; 82803; 82947; 82962; 83605; 83615; 83735; 84156; 84550; 85018; 85025; 86850; 86900; 87081; 87086; G0378; J0690; J1100; J1170; J1815; J1885; J2175; J2405; J2550; J2704; J3010; J3490; Q0162; C1751; J0330; J0360; J2370; J2590; J2765; J3230; J3475; J7030; J7050; J7120; Q0163

== ENCOUNTER 2018-06-28 04:44 | Inpatient (IN) | payer BC ==
[~2018-06-28] VITALS: Ht 190.5 cm; Wt 91.0 kg
[~2018-06-28 04:44] MED LIST changes: +HYDR-3240 PO; +IBUP-1222 PO; +LABE200T6 PO; +NIFE90TA PO
--- NOTE | 2018-06-28 05:11 | NUR ---
PT TO ROOM PLACED IN A GOWN MED STUDENT TO BEDSIDE FOR EVAL AND PT ACTIVELY VOMITING. RN AT BEDSIDESTARTING IV AND FLUIDS.
[2018-06-28] MEDS ORDERED: SODIUM CHLORIDE 0.9% 1,000 ML IV ONE (05:18)
[2018-06-28] MEDS ORDERED: SODIUM CHLORIDE 0.9% 1,000ML IVBOLUS ONE (05:30)
[2018-06-28] MEDS ORDERED: SODIUM CHLORIDE FLUSH 10ML SYR IVF ONE (05:30)
[2018-06-28] MEDS ORDERED: ONDANSETRON 2MG/ML, 2ML IVPush ONE ×2 (05:30→06:00)
[2018-06-28] MEDS: PANTOPRAZOLE 80 MG in SODIUM CHLORIDE 0.9% 100 ML IV SCH ×2 (05:40→15:40)
[2018-06-28] MEDS ORDERED: PANTOPRAZOLE 80 MG in SODIUM CHLORIDE 0.9% 50 ML IVPB ONE (05:40)
[2018-06-28] MEDS ORDERED: ONDANSETRON 2MG/ML, 2ML ONE ×2 (05:41→13:24)
[2018-06-28] MEDS ORDERED: hydrALAzine 20 MG/ML, 1ML IV ONE (06:00)
[2018-06-28 06:02] LABS: BASOPHILS # (AUTO) 0.01 x10^3/uL (0-0.1); BASOPHILS % (AUTO) 0 % (0-1); EOSINOPHILS # (AUTO) 0.02 x10^3/uL (0-0.4); EOSINOPHILS % (AUTO) 0 % (1-7); LYMPHOCYTES # (AUTO) 0.68 x10^3/uL (1-3.4); LYMPHOCYTES % (AUTO) 9 % (22-44); MD NO; MEAN CORPUSCULAR HGB CONC 33.5 g/dL (32.4-35.8); MEAN CORPUSCULAR VOLUME 92.7 fL (80-100); MEAN PLATELET VOLUME 6.5 fL (7.4-10.4); MONOCYTES # (AUTO) 0.49 x10^3/uL (0.2-0.8); MONOCYTES % (AUTO) 7 % (2-9); NEUTROPHILS % (AUTO) 84 % (42-75); PLATELET COUNT 339 x10^3/uL (130-400); RED CELL DISTRIBUTION WIDTH 13.6 % (9.6-15.2)
[2018-06-28 06:06] LABS: ALANINE AMINOTRANSFERASE 29 U/L (12-78); ALBUMIN 2.1 g/dL (3.4-5.0); ANION GAP 7 mmol/L (5-15); CALCIUM 8.3 mg/dL (8.5-10.1); CHLORIDE 110 mmol/L (98-107); CREATININE 0.82 mg/dL (0.55-1.02)
[2018-06-28 06:09] LABS: ALKALINE PHOSPHATASE 83 U/L (45-117); BILIRUBIN,TOTAL 0.3 mg/dL (0.2-1.0); TOTAL PROTEIN 5.9 g/dL (6.4-8.2)
[2018-06-28] MEDS ORDERED: METOCLOPRAMIDE 5 MG/ML, 2ML ONE ×2 (06:12→10:48)
[2018-06-28 06:14] LABS: ACETONE, SERUM Small (20mg/dL) mg/dL (Negative)
[2018-06-28] MEDS ORDERED: LABETALOL 20 MG/4 ML IVPush ONE (06:30)
[2018-06-28] MEDS ORDERED: METOCLOPRAMIDE 5 MG/ML, 2ML IVPush ONE (06:30)
--- NOTE | 2018-06-28 06:30 | NUR ---
PT WITH SECOND IV STARTED AND MEDICATED ORDERED. PT TO X-RAY AND IVF STILL RUNNING.
--- NOTE | 2018-06-28 07:23 | NUR ---
ASSUMED CARE OF PT. PT COMPLAINING OF ABDOMINAL PAIN
[2018-06-28] MEDS ORDERED: MORPHINE SULFATE 4 MG/ML, 1ML ONE (07:25)
[2018-06-28] MEDS ORDERED: HYDROmorphone 1 MG/ML, 1ML AMP IV ONE (07:30)
[2018-06-28] MEDS ORDERED: MORPHINE SULFATE 4 MG/ML, 1ML IVPush ONE (07:30)
[2018-06-28] MEDS ORDERED: HYDROmorphone 1 MG/ML, 1ML AMP ONE (07:31)
--- NOTE | 2018-06-28 07:52 | NUR ---
PT STATES PAIN AND NAUSEA IS RELIEVED. WAITING FOR ADMIT, PT RESTING
[2018-06-28 07:56] LABS: MICROSCOPIC INDICATED
[2018-06-28 08:03] LABS: CULTURE INDICATED? YES
--- NOTE | 2018-06-28 10:27 | NUR ---
PT VOMITING AND REQUESTING MORE PAIN MEDS. ED DOCTOR AWARE. CALLED HOSPITALIST FOR ORDERS, LEFT MESSAGE.
[2018-06-28] MEDS ORDERED: METOCLOPRAMIDE 5 MG/ML, 2ML IVPush PRN (11:00)
[2018-06-28] MEDS ORDERED: BISACODYL 10 MG SUPP PR PRN (12:30)
[2018-06-28] MEDS ORDERED: POLYETHYLENE GLYCOL 17 GM PACKET PO PRN (12:30)
[2018-06-28] MEDS: SUCRALFATE 1 GM/10 ML UDC PO SCH ×3 (12:30→20:09)
[2018-06-28] MEDS ORDERED: ONDANSETRON ODT 4 MG PO PRN (12:30)
[2018-06-28] MEDS ORDERED: MORPHINE SULFATE 4 MG/ML, 1ML IVPush PRN (12:30)
[2018-06-28 12:44] LABS: FREE T4 (FREE THYROXINE) 1.47 ng/dL (0.76-1.46); THYROID STIMULATING HORMONE 1.64 mIU/L (0.358-3.740)
[2018-06-28 12:59] LABS: HEMOGLOBIN A1C 6.4 % (4.2-6.3)
--- NOTE | 2018-06-28 13:18 | NUR ---
CT PENDING: PAIN MEDS
[2018-06-28] MEDS ORDERED: OXYcodone IR 5MG TABLET ONE (13:24)
[2018-06-28] MEDS ORDERED: ACETAMINOPHEN 325 MG TABLET ONE (13:26)
[2018-06-28] MEDS: OXYcodone IR 5MG TABLET PO PRN ×2 (13:29→20:10)
[2018-06-28] MEDS: ONDANSETRON 2MG/ML, 2ML IVPush PRN ×2 (13:30→19:50)
[2018-06-28] MEDS: ACETAMINOPHEN 325 MG TABLET PO PRN (13:30)
--- NOTE | 2018-06-28 13:39 | NUR ---
PT MEDICATED WITH FOR NAUSEA, AND PAIN. PTS OWN BS CHECKED 74, GIVEN JUICE TO PT. REPORT CALLED TO FLOOR.
[2018-06-28 14:54] VITALS: BP 170/102
[2018-06-28] MEDS: hydrALAzine 20 MG/ML, 1ML IVPush PRN ×2 (15:19→21:13)
[2018-06-28] MEDS: SODIUM CHLORIDE 0.9% 1,000 ML IV SCH (16:20)
[2018-06-28] MEDS: METOCLOPRAMIDE 5 MG/ML, 2ML IVPush SCH ×2 (16:20→21:12)
[2018-06-28 16:21] VITALS: BP 120/70
[2018-06-28] MEDS: INSULIN LISPRO 100 UNITS/ML, PEN SQ-INSULIN SCH ×2 (16:21→20:11)
[2018-06-28] MEDS ORDERED: HYDROmorphone 2 MG/ML, 1ML ONE ×2 (16:32→21:57)
[2018-06-28] MEDS: HYDROmorphone 1 MG/ML, 1ML AMP IV PRN ×2 (16:38→22:01)
[2018-06-28 20:07] VITALS: BP 159/102
[2018-06-28] MEDS: LABETALOL 200 MG TABLET PO SCH (20:10)
[2018-06-28 20:49] VITALS: BP 152/102
[2018-06-28 21:54] VITALS: BP 137/86
[2018-06-29 00:45] VITALS: BP 124/73
[2018-06-29] MEDS ORDERED: HYDROmorphone 2 MG/ML, 1ML ONE ×5 (02:50→23:07)
[2018-06-29] MEDS: ONDANSETRON 2MG/ML, 2ML IVPush PRN ×3 (02:56→17:09)
[2018-06-29] MEDS: HYDROmorphone 1 MG/ML, 1ML AMP IV PRN ×5 (02:58→23:13)
[2018-06-29] MEDS: SODIUM CHLORIDE 0.9% 1,000 ML IV SCH (03:03)
[2018-06-29] MEDS: METOCLOPRAMIDE 5 MG/ML, 2ML IVPush SCH ×4 (04:52→21:28)
[2018-06-29 06:26] LABS: BASOPHILS # (AUTO) 0.02 x10^3/uL (0-0.1); BASOPHILS % (AUTO) 0 % (0-1); EOSINOPHILS # (AUTO) 0.02 x10^3/uL (0-0.4); EOSINOPHILS % (AUTO) 0 % (1-7); LYMPHOCYTES # (AUTO) 0.97 x10^3/uL (1-3.4); LYMPHOCYTES % (AUTO) 12 % (22-44); MD NO; MEAN CORPUSCULAR HEMOGLOBIN 31.8 pg (27.0-34.8); MEAN CORPUSCULAR HGB CONC 34.5 g/dL (32.4-35.8); MEAN PLATELET VOLUME 6.2 fL (7.4-10.4); MONOCYTES # (AUTO) 0.58 x10^3/uL (0.2-0.8); MONOCYTES % (AUTO) 7 % (2-9); NEUTROPHILS # (AUTO) 6.44 x10^3/uL (1.8-6.8); NEUTROPHILS % (AUTO) 80 % (42-75); PLATELET COUNT 287 x10^3/uL (130-400); RED BLOOD COUNT 2.73 x10^6/uL (3.82-5.3); RED CELL DISTRIBUTION WIDTH 14.1 % (9.6-15.2)
[2018-06-29 06:35] LABS: ANION GAP 7 mmol/L (5-15); CALCIUM 7.3 mg/dL (8.5-10.1); CHLORIDE 113 mmol/L (98-107)
[2018-06-29 06:39] LABS: ALANINE AMINOTRANSFERASE 24 U/L (12-78); ALKALINE PHOSPHATASE 61 U/L (45-117); BILIRUBIN,TOTAL 0.3 mg/dL (0.2-1.0); CREATININE 0.97 mg/dL (0.55-1.02); TOTAL PROTEIN 5.2 g/dL (6.4-8.2)
[2018-06-29 06:40] LABS: CHOL/HDL RATIO 2.8; CHOLESTEROL, TOTAL 167 mg/dL (140-239); HDL CHOL % 36 % (28-40); HDL CHOLESTEROL (DIRECT) 60 mg/dL (40-60); LDL CHOLESTEROL,CALCULATED 84 mg/dL (54-169); LDL/HDL RATIO 1.4 (0.5-3.0); TRIGLYCERIDES 114 mg/dL (50-200); VLDL CHOLESTEROL 23 mg/dL (0-25)
[2018-06-29] MEDS: INSULIN LISPRO 100 UNITS/ML, PEN SQ-INSULIN SCH ×4 (07:00→23:19)
[2018-06-29] MEDS: SUCRALFATE 1 GM/10 ML UDC PO SCH ×5 (07:41→21:28)
[2018-06-29 08:28] VITALS: BP 156/94
[2018-06-29] MEDS ORDERED: niFEDipine ER 60 MG TABLET.ER PO ONE (08:59)
[2018-06-29] MEDS ORDERED: niFEDipine ER 30 MG TABLET.ER ONE (09:00)
[2018-06-29] MEDS: niFEDipine ER 90 MG TAB.ER.24 PO SCH (09:00)
[2018-06-29] MEDS: LABETALOL 200 MG TABLET PO SCH ×2 (09:05→21:28)
[2018-06-29 13:06] VITALS: BP 122/74
[2018-06-29] MEDS: DOCUSATE 100 MG CAPSULE PO PRN (15:32)
[2018-06-29] MEDS ORDERED: TPN PER PHARMACY MC PRN (16:30)
[2018-06-29] MEDS ORDERED: DEXTROSE 10% 500 ML IV PRN (17:00)
[2018-06-29] MEDS ORDERED: DEXTROSE 70% IV SCH (17:00)
[2018-06-29] MEDS ORDERED: SMOF TPN IV SCH (17:00)
[2018-06-29] MEDS ORDERED: AMINO ACID 10% IV SCH (17:00)
[2018-06-29] MEDS ORDERED: FAT EMUL IV SCH (17:00)
[2018-06-29] MEDS ORDERED: DEXTROSE 50%, 50ML SYRINGE IVPush PRN (17:00)
[2018-06-29] MEDS ORDERED: [UNRECOGNIZED DRUG - OTHER] IV SCH (17:00)
[2018-06-29] MEDS: FILTER, DISP 1.2 MICRON FOR TPN/PVN IV PRN (17:36)
[2018-06-29 19:17] VITALS: BP 140/92
[2018-06-30 00:56] VITALS: BP 147/95
[2018-06-30] MEDS: ONDANSETRON 2MG/ML, 2ML IVPush PRN ×3 (01:19→19:21)
[2018-06-30] MEDS: METOCLOPRAMIDE 5 MG/ML, 2ML IVPush SCH ×4 (03:21→21:09)
[2018-06-30] MEDS ORDERED: HYDROmorphone 2 MG/ML, 1ML ONE ×5 (03:29→21:41)
[2018-06-30] MEDS: HYDROmorphone 1 MG/ML, 1ML AMP IV PRN ×5 (03:33→21:45)
[2018-06-30 04:24] LABS: BASOPHILS # (AUTO) 0.03 x10^3/uL (0-0.1); BASOPHILS % (AUTO) 0 % (0-1); EOSINOPHILS # (AUTO) 0.13 x10^3/uL (0-0.4); EOSINOPHILS % (AUTO) 2 % (1-7); LYMPHOCYTES # (AUTO) 1.42 x10^3/uL (1-3.4); LYMPHOCYTES % (AUTO) 19 % (22-44); MD NO; MEAN CORPUSCULAR HEMOGLOBIN 31.3 pg (27.0-34.8); MEAN CORPUSCULAR HGB CONC 33.8 g/dL (32.4-35.8); MEAN CORPUSCULAR VOLUME 92.7 fL (80-100); MEAN PLATELET VOLUME 6.4 fL (7.4-10.4); MONOCYTES # (AUTO) 0.79 x10^3/uL (0.2-0.8); MONOCYTES % (AUTO) 10 % (2-9); NEUTROPHILS # (AUTO) 5.26 x10^3/uL (1.8-6.8); NEUTROPHILS % (AUTO) 69 % (42-75); PLATELET COUNT 305 x10^3/uL (130-400); RED CELL DISTRIBUTION WIDTH 14.1 % (9.6-15.2)
[2018-06-30 04:29] LABS: ANION GAP 5 mmol/L (5-15); CALCIUM 7.5 mg/dL (8.5-10.1); CHLORIDE 110 mmol/L (98-107); CREATININE 0.87 mg/dL (0.55-1.02)
[2018-06-30 04:35] LABS: PREALBUMIN 15.7 mg/dL (20.0-40.0)
[2018-06-30] MEDS: INSULIN LISPRO 100 UNITS/ML, PEN SQ-INSULIN SCH ×4 (05:30→23:30)
[2018-06-30 07:03] VITALS: BP 165/99
[2018-06-30] MEDS: SUCRALFATE 1 GM/10 ML UDC PO SCH ×4 (08:44→21:08)
[2018-06-30] MEDS: LABETALOL 200 MG TABLET PO SCH ×2 (08:46→21:09)
[2018-06-30] MEDS: niFEDipine ER 90 MG TAB.ER.24 PO SCH (08:46)
[2018-06-30] MEDS: DOCUSATE 100 MG CAPSULE PO PRN (12:18)
[2018-06-30 12:54] VITALS: BP 133/86
[2018-06-30] MEDS ORDERED: [UNRECOGNIZED DRUG - OTHER] IV SCH (17:00)
[2018-06-30] MEDS ORDERED: FAT EMUL IV SCH ×2 (17:00)
[2018-06-30] MEDS ORDERED: DEXTROSE 70% IV SCH ×2 (17:00)
[2018-06-30] MEDS ORDERED: SMOF TPN IV SCH ×2 (17:00)
[2018-06-30] MEDS ORDERED: AMINO ACID 10% IV SCH ×2 (17:00)
[2018-06-30] MEDS ORDERED: [UNRECOGNIZED DRUG - OTHER] IV SCH (17:00)
[2018-06-30 20:23] VITALS: BP 156/98
[2018-07-01] MEDS: ONDANSETRON 2MG/ML, 2ML IVPush PRN (00:02)
[2018-07-01 01:42] VITALS: BP 157/100
[2018-07-01] MEDS ORDERED: HYDROmorphone 2 MG/ML, 1ML ONE ×3 (01:48→13:19)
[2018-07-01] MEDS: METOCLOPRAMIDE 5 MG/ML, 2ML IVPush SCH ×4 (03:03→19:41)
[2018-07-01 04:07] LABS: ANION GAP 3 mmol/L (5-15); CALCIUM 7.5 mg/dL (8.5-10.1); CHLORIDE 108 mmol/L (98-107); CREATININE 0.84 mg/dL (0.55-1.02)
[2018-07-01] MEDS: INSULIN LISPRO 100 UNITS/ML, PEN SQ-INSULIN SCH ×4 (05:30→21:10)
[2018-07-01] MEDS: HYDROmorphone 1 MG/ML, 1ML AMP IV PRN ×2 (05:46→13:22)
[2018-07-01] MEDS: LABETALOL 200 MG TABLET PO SCH ×2 (07:49→19:40)
[2018-07-01] MEDS: niFEDipine ER 90 MG TAB.ER.24 PO SCH (07:49)
[2018-07-01] MEDS: SUCRALFATE 1 GM/10 ML UDC PO SCH ×4 (07:49→19:40)
[2018-07-01 08:06] VITALS: BP 144/90
[2018-07-01 13:18] VITALS: BP 142/87
[2018-07-01] MEDS ORDERED: MORPHINE SULFATE 4 MG/ML, 1ML IVPush PRN (15:30)
[2018-07-01] MEDS: ACETAMINOPHEN 325 MG TABLET PO PRN (17:43)
[2018-07-01 19:15] VITALS: BP 157/101
[2018-07-01] MEDS: FILTER, DISP 1.2 MICRON FOR TPN/PVN IV PRN (19:40)
[2018-07-01] MEDS: DOCUSATE 100 MG CAPSULE PO PRN (19:56)
[2018-07-01] MEDS ORDERED: SMOF TPN IV SCH (20:00)
[2018-07-01] MEDS ORDERED: AMINO ACID 10% IV SCH (20:00)
[2018-07-01] MEDS ORDERED: [UNRECOGNIZED DRUG - OTHER] IV SCH (20:00)
[2018-07-01] MEDS ORDERED: DEXTROSE 70% IV SCH (20:00)
[2018-07-01] MEDS ORDERED: FAT EMUL IV SCH (20:00)
[2018-07-02 02:12] VITALS: BP 151/93
[2018-07-02] MEDS: METOCLOPRAMIDE 5 MG/ML, 2ML IVPush SCH ×4 (03:28→20:14)
[2018-07-02 04:02] LABS: ANION GAP 4 mmol/L (5-15); CALCIUM 7.6 mg/dL (8.5-10.1); CHLORIDE 108 mmol/L (98-107); CREATININE 0.99 mg/dL (0.55-1.02)
[2018-07-02] MEDS: INSULIN LISPRO 100 UNITS/ML, PEN SQ-INSULIN SCH (04:31)
[2018-07-02 06:54] VITALS: BP 156/98
[2018-07-02] MEDS: SUCRALFATE 1 GM/10 ML UDC PO SCH ×4 (08:33→20:14)
[2018-07-02] MEDS: LABETALOL 200 MG TABLET PO SCH ×2 (08:34→20:14)
[2018-07-02] MEDS: niFEDipine ER 60 MG TABLET.ER PO SCH (08:34)
[2018-07-02] MEDS: DOCUSATE 100 MG CAPSULE PO PRN (09:00)
[2018-07-02 12:39] VITALS: BP 115/71
[2018-07-02 19:24] VITALS: BP 138/69
[2018-07-02 20:15] VITALS: BP 145/92
[2018-07-03 02:17] VITALS: BP 152/93
[2018-07-03] MEDS: METOCLOPRAMIDE 5 MG/ML, 2ML IVPush SCH ×2 (03:00→08:33)
[2018-07-03 03:52] LABS: ALBUMIN 2.1 g/dL (3.4-5.0); ANION GAP 5 mmol/L (5-15); CHLORIDE 111 mmol/L (98-107)
[2018-07-03 07:36] VITALS: BP 158/94
[2018-07-03] MEDS: SUCRALFATE 1 GM/10 ML UDC PO SCH (07:42)
[2018-07-03] MEDS: LABETALOL 200 MG TABLET PO SCH (08:33)
[2018-07-03] MEDS: niFEDipine ER 60 MG TABLET.ER PO SCH (08:33)
[2018-07-03] MEDS ORDERED: NIFE60TA13 PO (08:48)
[2018-07-03] MEDS ORDERED: DOCU-131 PO (08:48)
[2018-07-03] MEDS ORDERED: SUCR1ORA5 PO (08:48)
== END 2018-07-03 11:31 | disposition home or self-care (01) | DRG 776 ==
LOC: ED 06:53 → EDIP 07:56 → 3NE 14:30 → DCLOUNGE 07-03 11:22
PROVIDERS: ADMIT Internal Medicine; ATTEND Internal Medicine
PROC: 0T9B70Z Drainage of Bladder with Drainage Device, Via Natural or Artificial Opening (ICD-10-PCS; principal; 2018-06-28)
PROC: 02HV33Z Insertion of Infusion Device into Superior Vena Cava, Percutaneous Approach (ICD-10-PCS; 2018-06-29)
PROC: B5181ZA Fluoroscopy of Superior Vena Cava using Low Osmolar Contrast, Guidance (ICD-10-PCS; 2018-06-29)
PROC: B548ZZA Ultrasonography of Superior Vena Cava, Guidance (ICD-10-PCS; 2018-06-29)
DX: O24.03 Pre-existing type 1 diabetes mellitus, in the puerperium (principal); K22.6 Gastro-esophageal laceration-hemorrhage syndrome; E43 Unspecified severe protein-calorie malnutrition; K29.01 Acute gastritis with bleeding; O99.355 Diseases of the nervous system complicating the puerperium; O99.63 Diseases of the digestive system complicating the puerperium; K92.9 Disease of digestive system, unspecified; E10.43 Type 1 diabetes mellitus with diabetic autonomic (poly)neuropathy; K31.84 Gastroparesis; R31.29 Other microscopic hematuria; E10.42 Type 1 diabetes mellitus with diabetic polyneuropathy; F41.9 Anxiety disorder, unspecified; G40.909 Epilepsy, unspecified, not intractable, without status epilepticus; D64.9 Anemia, unspecified; O99.03 Anemia complicating the puerperium; O25.3 Malnutrition in the puerperium; K59.00 Constipation, unspecified; R74.0 Nonspecific elevation of levels of transaminase and lactic acid dehydrogenase [LDH]; E10.21 Type 1 diabetes mellitus with diabetic nephropathy; Z96.41 Presence of insulin pump (external) (internal); E10.319 Type 1 diabetes mellitus with unspecified diabetic retinopathy without macular edema; E10.649 Type 1 diabetes mellitus with hypoglycemia without coma; E86.9 Volume depletion, unspecified; Z80.42 Family history of malignant neoplasm of prostate
CPT/HCPCS: 36415; 74018; 74022; 99291; J3475; 36573; 74176; 80048; 80053; 80061; 81001; 82010; 82040; 83036; 83605; 83690; 83735; 84100; 84134; 84439; 84443; 85025; 87086; 93005; 96374; 96375; G0378; J0610; J1170; J2405; J3480; C1751; C9113; J0360; J2765; J3420; J3490; J7030

== ENCOUNTER 2020-01-09 15:24 | Inpatient (IN) | payer BC ==
[~2020-01-09] VITALS: Ht 190.5 cm; Wt 86.0 kg
[~2020-01-09 15:24] MED LIST changes: +DOCU-131 PO; -MAGN400T7 PO; +MAGN400T9 PO; +NIFE60TA13 PO; +SUCR1ORA5 PO
--- NOTE | 2020-01-09 15:57 | NUR ---
PT C/O N/V X 3 DAYS. PTS SPOUSE STATES THIS STARTED TUESDAY. PT NOW VOMITING BLOOD INTO EMESIS
[2020-01-09] MEDS ORDERED: SODIUM CHLORIDE FLUSH 10ML SYR IVF ONE ×2 (16:00→16:30)
[2020-01-09] MEDS ORDERED: SODIUM CHLORIDE 0.9% 1,000ML IVBOLUS ONE ×2 (16:00→16:30)
[2020-01-09] MEDS ORDERED: ONDANSETRON 2MG/ML, 2ML IVPush ONE (16:00)
[2020-01-09 16:02] LABS: BASOPHILS % (AUTO) 0 % (0-1); EOSINOPHILS % (AUTO) 0 % (1-7); LYMPHOCYTES % (AUTO) 10 % (22-44); MEAN CORPUSCULAR HGB CONC 32.9 g/dL (32.4-35.8); MEAN PLATELET VOLUME 7.5 fL (7.4-10.4); MONOCYTES % (AUTO) 4 % (2-9); NEUTROPHILS % (AUTO) 87 % (42-75); PLATELET COUNT 208 x10^3/uL (130-400); RED BLOOD COUNT 5.23 x10^6/uL (3.82-5.3); RED CELL DISTRIBUTION WIDTH 13.4 % (9.6-15.2)
[2020-01-09 16:10] LABS: ALANINE AMINOTRANSFERASE 31 U/L (12-78); ALBUMIN 2.8 g/dL (3.4-5.0); ANION GAP 8 mmol/L (5-15); CALCIUM 8.9 mg/dL (8.5-10.1); CHLORIDE 109 mmol/L (98-107); CREATININE 2.07 mg/dL (0.55-1.02)
[2020-01-09] MEDS ORDERED: ONDANSETRON 2MG/ML, 2ML ONE (16:13)
[2020-01-09 16:14] LABS: ALKALINE PHOSPHATASE 123 U/L (45-117); BILIRUBIN,TOTAL 0.3 mg/dL (0.2-1.0); TOTAL PROTEIN 6.8 g/dL (6.4-8.2)
--- NOTE | 2020-01-09 16:22 | NUR ---
PROVIDER BEDSIDE. PT MEDICATD PER JUN.
[2020-01-09] MEDS ORDERED: PROMETHAZINE 25 MG/ML, 1ML IM ONE (16:30)
[2020-01-09 16:41] LABS: ACETONE, SERUM Large (80mg/dL) (Negative)
[2020-01-09] MEDS ORDERED: METOCLOPRAMIDE 5 MG/ML, 2ML ONE (16:49)
[2020-01-09 16:52] LABS: MD SCAN
[2020-01-09] MEDS ORDERED: PANTOPRAZOLE 40 MG IV IV ONE (17:00)
[2020-01-09] MEDS ORDERED: PANTOPRAZOLE 40 MG IV ONE (17:00)
[2020-01-09] MEDS ORDERED: METOPROLOL 1 MG/ML, 5ML IVPush ONE (17:00)
[2020-01-09] MEDS ORDERED: METOCLOPRAMIDE 5 MG/ML, 2ML IVPush ONE ×2 (17:00→19:00)
[2020-01-09] MEDS ORDERED: ENALAPRILAT 1.25 MG/ML, 2ML IV ONE ×2 (17:00→18:30)
[2020-01-09 17:27] LABS: PH, VENOUS 7.462 pH (7.320-7.420)
--- NOTE | 2020-01-09 17:28 | NUR ---
PT MEDICATED PER JUN. PT STATES SHE HAS NO RELIEF FROM THE NAUSEA/VOMITING.
--- NOTE | 2020-01-09 18:05 | NUR ---
AWARE OF BP AFTER VASOTEC GIVEN. ADDITIONAL DOSE ORDERED. AWAITING PHARMACY
[2020-01-09 18:32] LABS: MICROSCOPIC AUTO
[2020-01-09] MEDS ORDERED: ENALAPRILAT 1.25 MG/ML, 1ML ONE (18:34)
--- NOTE | 2020-01-09 18:38 | NUR ---
PT OFF FLOOR TO XRAY
--- NOTE | 2020-01-09 18:43 | NUR ---
PT BACK FROM XRAY
--- NOTE | 2020-01-09 18:53 | NUR ---
PT MEDICATED PER JUN. VS'S UPDATED. PT RESTING COMFORTABLY WITH EYES CLOSED, EVEN RISE AND FALL OF CHEST NOTED. PTS SPOUSE STATES HER VOMITING HAS SLOWED IN FREQUENCY.
[2020-01-09 20:00] VITALS: BP 199/111
[2020-01-09 20:25] VITALS: BP 199/111
[2020-01-09] MEDS ORDERED: ACETAMINOPHEN 325 MG TABLET PO PRN (20:30)
[2020-01-09] MEDS ORDERED: GABAPENTIN 300 MG CAPSULE PO PRN (20:30)
[2020-01-09] MEDS ORDERED: PHARMACY MAY ADJ FOR RENAL FX MC PRN (20:30)
[2020-01-09] MEDS: LABETALOL 5MG/ML, 20ML IVPush PRN (21:00)
[2020-01-09] MEDS: PROMETHAZINE 25 MG/ML, 1ML IM PRN (21:01)
[2020-01-09] MEDS: HYDROmorphone 2 MG/ML, 1ML IVPush PRN (21:02)
[2020-01-09] MEDS: SODIUM CHLORIDE 0.9% 1,000 ML IV SCH (21:38)
[2020-01-09 22:23] VITALS: BP 135/81
[2020-01-09] MEDS: ONDANSETRON 2MG/ML, 2ML IVPush PRN (23:15)
[2020-01-10] VITALS (7 sets, daily range): BP systolic 100–207; BP diastolic 61–133
[2020-01-10] MEDS: HYDROmorphone 2 MG/ML, 1ML IVPush PRN ×4 (00:03→09:18)
[2020-01-10] MEDS: LABETALOL 5MG/ML, 20ML IVPush PRN ×5 (00:10→23:32)
[2020-01-10] MEDS: PROMETHAZINE 25 MG/ML, 1ML IM PRN ×2 (03:05→19:50)
[2020-01-10 04:58] LABS: BASOPHILS % (AUTO) 0 % (0-1); EOSINOPHILS % (AUTO) 0 % (1-7); LYMPHOCYTES % (AUTO) 12 % (22-44); MEAN CORPUSCULAR HEMOGLOBIN 28.3 pg (27.0-34.8); MEAN CORPUSCULAR HGB CONC 33.2 g/dL (32.4-35.8); MEAN PLATELET VOLUME 7.8 fL (7.4-10.4); MONOCYTES % (AUTO) 9 % (2-9); NEUTROPHILS % (AUTO) 79 % (42-75); PLATELET COUNT 185 x10^3/uL (130-400); RED CELL DISTRIBUTION WIDTH 13.6 % (9.6-15.2)
[2020-01-10] MEDS: ONDANSETRON 2MG/ML, 2ML IVPush PRN ×4 (05:08→23:28)
[2020-01-10 05:09] LABS: ANION GAP 9 mmol/L (5-15); CALCIUM 7.4 mg/dL (8.5-10.1); CHLORIDE 114 mmol/L (98-107)
[2020-01-10] MEDS: SODIUM CHLORIDE 0.9% 1,000 ML IV SCH ×3 (05:09→21:26)
[2020-01-10 05:10] LABS: CREATININE 1.95 mg/dL (0.55-1.02)
[2020-01-10] MEDS: PANTOPRAZOLE 40 MG IV IVPush SCH ×2 (05:12→17:20)
[2020-01-10 05:16] LABS: MD NO
[2020-01-10] MEDS ORDERED: NALOXONE 0.4 MG/ML, 1ML ONE (10:54)
[2020-01-10] MEDS ORDERED: NALOXONE 0.4 MG/ML, 1ML IVPush ONE (11:00)
[2020-01-10] MEDS: ENALAPRILAT 1.25 MG/ML, 2ML IV PRN ×3 (14:26→19:50)
[2020-01-10] MEDS ORDERED: hydrALAzine 20 MG/ML, 1ML IV PRN (16:30)
[2020-01-11] MEDS: ENALAPRILAT 1.25 MG/ML, 2ML IV PRN (01:47)
[2020-01-11 02:00] VITALS: BP 219/139
[2020-01-11] MEDS: LABETALOL 5MG/ML, 20ML IVPush PRN ×3 (02:20→23:11)
[2020-01-11] MEDS: PROMETHAZINE 25 MG/ML, 1ML IM PRN ×2 (03:33→21:24)
[2020-01-11] MEDS: SODIUM CHLORIDE 0.9% 1,000 ML IV SCH ×6 (04:56→20:44)
[2020-01-11] MEDS: PANTOPRAZOLE 40 MG IV IVPush SCH ×2 (06:10→18:17)
[2020-01-11] MEDS: ONDANSETRON 2MG/ML, 2ML IVPush PRN ×2 (06:10→14:22)
[2020-01-11] MEDS: METOCLOPRAMIDE 5 MG/ML, 2ML IVPush SCH ×3 (07:28→18:17)
[2020-01-11 07:34] LABS: ALANINE AMINOTRANSFERASE 21 U/L (12-78); ALBUMIN 2.4 g/dL (3.4-5.0); ANION GAP 5 mmol/L (5-15); CALCIUM 7.5 mg/dL (8.5-10.1); CHLORIDE 123 mmol/L (98-107); CREATININE 1.85 mg/dL (0.55-1.02)
[2020-01-11 07:36] LABS: ALKALINE PHOSPHATASE 90 U/L (45-117); BILIRUBIN,TOTAL 0.4 mg/dL (0.2-1.0); TOTAL PROTEIN 5.8 g/dL (6.4-8.2)
[2020-01-11] MEDS: LABETALOL 200 MG TABLET PO SCH ×2 (09:00→20:05)
[2020-01-11] MEDS ORDERED: SODIUM PHOSPHATE 20 MMOL in SODIUM CHLORIDE 0.9% 500 ML IV ONE (09:00)
[2020-01-11] MEDS: niFEDipine ER 60 MG TABLET.ER PO SCH (09:00)
[2020-01-11] MEDS: ENOXAPARIN 40 MG/0.4 ML SQ SCH (10:20)
[2020-01-11 20:25] VITALS: BP 184/114
[2020-01-11 20:30] VITALS: BP 150/92
[2020-01-11] MEDS ORDERED: GLUCAGON 1 MG IM PRN (21:00)
[2020-01-11] MEDS: SODIUM CHLORIDE FLUSH 10ML SYR IVF SCH (21:00)
[2020-01-11] MEDS ORDERED: DEXTROSE 4 GM TAB.CHEW PO PRN (21:00)
[2020-01-11] MEDS ORDERED: DEXTROSE 50%, 50ML SYRINGE IVPush PRN (21:00)
[2020-01-11 22:09] VITALS: BP 122/74
[2020-01-11 23:11] VITALS: BP 166/113
[2020-01-11 23:46] VITALS: BP 156/101
[2020-01-12] MEDS: METOCLOPRAMIDE 5 MG/ML, 2ML IVPush SCH ×4 (00:17→18:18)
[2020-01-12 01:57] VITALS: BP 162/106
[2020-01-12] MEDS: LABETALOL 5MG/ML, 20ML IVPush PRN (02:02)
[2020-01-12] MEDS: SODIUM CHLORIDE 0.9% 1,000 ML IV SCH ×2 (02:06→10:25)
[2020-01-12 04:06] VITALS: BP 164/104
[2020-01-12] MEDS: PROMETHAZINE 25 MG/ML, 1ML IM PRN (04:24)
[2020-01-12 04:31] LABS: ANION GAP 7 mmol/L (5-15); CALCIUM 6.9 mg/dL (8.5-10.1); CHLORIDE 122 mmol/L (98-107)
[2020-01-12] MEDS: PANTOPRAZOLE 40 MG IV IVPush SCH ×2 (04:37→18:18)
[2020-01-12] MEDS: ONDANSETRON 2MG/ML, 2ML IVPush PRN (07:15)
[2020-01-12] MEDS: niFEDipine ER 60 MG TABLET.ER PO SCH (08:58)
[2020-01-12] MEDS: SODIUM CHLORIDE FLUSH 10ML SYR IVF SCH ×2 (08:59→20:14)
[2020-01-12] MEDS: LABETALOL 200 MG TABLET PO SCH ×2 (08:59→20:15)
[2020-01-12] MEDS ORDERED: MAGNESIUM SULFATE PMX 2GM/50ML 50 ML IVPB ONE (09:15)
[2020-01-12] MEDS ORDERED: POTASSIUM CHLORIDE 40 MEQ in SODIUM CHLORIDE 0.9% 500 ML IV ONE (10:00)
[2020-01-12] MEDS: ENOXAPARIN 40 MG/0.4 ML SQ SCH (10:43)
[2020-01-12] MEDS ORDERED: LABETALOL 5MG/ML, 20ML IVPush PRN (15:30)
[2020-01-12] MEDS ORDERED: ENALAPRILAT 1.25 MG/ML, 2ML IV PRN (15:30)
[2020-01-12] MEDS ORDERED: PROMETHAZINE 25 MG/ML, 1ML IM PRN (15:30)
[2020-01-13] MEDS: METOCLOPRAMIDE 5 MG/ML, 2ML IVPush SCH ×3 (00:34→13:00)
[2020-01-13 03:54] VITALS: BP 138/88
[2020-01-13 04:20] LABS: ANION GAP 7 mmol/L (5-15); CALCIUM 6.7 mg/dL (8.5-10.1); CHLORIDE 118 mmol/L (98-107)
[2020-01-13 04:21] LABS: CREATININE 1.92 mg/dL (0.55-1.02)
[2020-01-13 04:59] LABS: BASOPHILS % (AUTO) 1 % (0-1); EOSINOPHILS % (AUTO) 1 % (1-7); LYMPHOCYTES % (AUTO) 38 % (22-44); MEAN CORPUSCULAR HEMOGLOBIN 29.1 pg (27.0-34.8); MEAN CORPUSCULAR HGB CONC 33.8 g/dL (32.4-35.8); MEAN PLATELET VOLUME 7.1 fL (7.4-10.4); MONOCYTES % (AUTO) 10 % (2-9); NEUTROPHILS % (AUTO) 52 % (42-75); PLATELET COUNT 193 x10^3/uL (130-400); RED BLOOD COUNT 3.59 x10^6/uL (3.82-5.3); RED CELL DISTRIBUTION WIDTH 13.3 % (9.6-15.2)
[2020-01-13 05:20] LABS: MD NO
[2020-01-13] MEDS: PANTOPRAZOLE 40 MG IV IVPush SCH ×2 (06:29→18:03)
[2020-01-13] MEDS: SODIUM CHLORIDE FLUSH 10ML SYR IVF SCH ×2 (07:55→22:35)
[2020-01-13] MEDS: LABETALOL 200 MG TABLET PO SCH ×2 (07:56→22:35)
[2020-01-13] MEDS: niFEDipine ER 60 MG TABLET.ER PO SCH (07:56)
[2020-01-13] MEDS: ENOXAPARIN 40 MG/0.4 ML SQ SCH (10:30)
[2020-01-13 13:38] VITALS: BP 112/73
[2020-01-13] MEDS ORDERED: METOCLOPRAMIDE 5 MG/ML, 2ML IVPush PRN (14:30)
[2020-01-13] MEDS ORDERED: LABETALOL 100 MG TABLET ONE (22:23)
[2020-01-13 22:30] VITALS: BP 158/108
[2020-01-13] MEDS: CALCIUM CARBONATE 500 MG TAB.CHEW PO SCH (22:35)
[2020-01-14 01:27] VITALS: BP 173/113
[2020-01-14] MEDS ORDERED: ENALAPRILAT 1.25 MG/ML, 1ML ONE (01:33)
[2020-01-14 05:01] LABS: BASOPHILS % (AUTO) 0 % (0-1); EOSINOPHILS % (AUTO) 1 % (1-7); LYMPHOCYTES % (AUTO) 31 % (22-44); MEAN CORPUSCULAR HEMOGLOBIN 28.5 pg (27.0-34.8); MEAN CORPUSCULAR HGB CONC 33.3 g/dL (32.4-35.8); MEAN PLATELET VOLUME 7.6 fL (7.4-10.4); MONOCYTES % (AUTO) 9 % (2-9); NEUTROPHILS % (AUTO) 59 % (42-75); PLATELET COUNT 206 x10^3/uL (130-400); RED BLOOD COUNT 3.76 x10^6/uL (3.82-5.3); RED CELL DISTRIBUTION WIDTH 13.2 % (9.6-15.2)
[2020-01-14 05:12] LABS: ALBUMIN 1.8 g/dL (3.4-5.0); ANION GAP 7 mmol/L (5-15); CALCIUM 7.4 mg/dL (8.5-10.1); CHLORIDE 115 mmol/L (98-107); MD NO
[2020-01-14 05:16] LABS: ALANINE AMINOTRANSFERASE 23 U/L (12-78); ALKALINE PHOSPHATASE 59 U/L (45-117); BILIRUBIN,TOTAL 0.3 mg/dL (0.2-1.0); CREATININE 1.76 mg/dL (0.55-1.02); TOTAL PROTEIN 4.1 g/dL (6.4-8.2)
[2020-01-14 05:58] VITALS: BP 152/94
[2020-01-14] MEDS: CALCIUM CARBONATE 500 MG TAB.CHEW PO SCH ×3 (06:20→16:33)
[2020-01-14] MEDS: PANTOPRAZOLE 40 MG IV IVPush SCH (06:20)
[2020-01-14 06:31] VITALS: BP 158/102
[2020-01-14] MEDS: niFEDipine ER 60 MG TABLET.ER PO SCH (08:16)
[2020-01-14] MEDS: LABETALOL 200 MG TABLET PO SCH (08:17)
[2020-01-14] MEDS: SODIUM CHLORIDE FLUSH 10ML SYR IVF SCH (08:17)
[2020-01-14] MEDS: ENOXAPARIN 40 MG/0.4 ML SQ SCH (10:30)
[2020-01-14 12:52] VITALS: BP 114/75
[2020-01-14] MEDS ORDERED: PANTOPRAZOLE 40MG TABLET PO SCH (16:50)
[2020-01-14] MEDS ORDERED: OMEP-110 PO (17:19)
[2020-01-14] MEDS ORDERED: LABE200T6 PO (17:19)
[2020-01-14] MEDS ORDERED: NIFE60TA13 PO (17:19)
[2020-01-14] MEDS ORDERED: POTASSIUM CHLORIDE 20 MEQ TAB.ER.PRT PO ONE (17:30)
[2020-01-15] MEDS ORDERED: OMEPRAZOLE 20 MG CAPSULE.DR PO SCH (06:00)
== END 2020-01-14 20:09 | disposition home or self-care (01) | DRG 368 ==
LOC: ED 19:02 → EDIP 19:12 → 4WST 20:30 → CCU 01-10 12:59 → 5SO 01-13 10:42
PROVIDERS: ADMIT Family Medicine; ATTEND Internal Medicine
DX: K22.6 Gastro-esophageal laceration-hemorrhage syndrome (principal); G92 Toxic encephalopathy; N17.0 Acute kidney failure with tubular necrosis; E87.0 Hyperosmolality and hypernatremia; I16.1 Hypertensive emergency; D63.8 Anemia in other chronic diseases classified elsewhere; E10.21 Type 1 diabetes mellitus with diabetic nephropathy; E10.43 Type 1 diabetes mellitus with diabetic autonomic (poly)neuropathy; E83.42 Hypomagnesemia; E83.51 Hypocalcemia; E86.0 Dehydration; E87.6 Hypokalemia; K29.01 Acute gastritis with bleeding; K31.84 Gastroparesis; Z79.4 Long term (current) use of insulin; Z96.41 Presence of insulin pump (external) (internal); T40.2X5A Adverse effect of other opioids, initial encounter; I12.9 Hypertensive chronic kidney disease with stage 1 through stage 4 chronic kidney disease, or unspecified chronic kidney disease; N18.9 Chronic kidney disease, unspecified; E10.65 Type 1 diabetes mellitus with hyperglycemia; E10.22 Type 1 diabetes mellitus with diabetic chronic kidney disease
CPT/HCPCS: 36415; 36600; 70450; 71045; 74021; 76770; 80048; 80053; 81001; 82010; 82330; 82803; 82962; 83036; 83605; 83690; 83735; 84100; 84443; 84703; 85014; 85018; 85025; 87081; 87086; 93005; 96361; 96374; 96375; 99291; G0378; J1170; J1650; J2310; J2405; J2550; J3480; C9113; J2765; J3475; J7030; J7040; J7050

== ENCOUNTER 2020-01-25 10:57 | Inpatient (IN) | payer BC ==
[~2020-01-25] VITALS: Ht 190.5 cm; Wt 73.6 kg
[~2020-01-25 10:57] MED LIST changes: +OMEP-110 PO
[2020-01-25 12:14] LABS: BASOPHILS % (AUTO) 1 % (0-1); EOSINOPHILS % (AUTO) 0 % (1-7); LYMPHOCYTES % (AUTO) 4 % (22-44); MEAN CORPUSCULAR HEMOGLOBIN 28.7 pg (27.0-34.8); MEAN CORPUSCULAR HGB CONC 33.2 g/dL (32.4-35.8); MEAN PLATELET VOLUME 7.3 fL (7.4-10.4); MONOCYTES % (AUTO) 2 % (2-9); NEUTROPHILS % (AUTO) 93 % (42-75); PLATELET COUNT 314 x10^3/uL (130-400); RED CELL DISTRIBUTION WIDTH 13.8 % (9.6-15.2)
[2020-01-25 12:17] LABS: FIO2 ROOM AIR %
[2020-01-25 12:24] LABS: ALBUMIN 2.9 g/dL (3.4-5.0); ANION GAP 10 mmol/L (5-15); CALCIUM 9.2 mg/dL (8.5-10.1); CHLORIDE 104 mmol/L (98-107)
[2020-01-25 12:30] LABS: ALANINE AMINOTRANSFERASE 15 U/L (12-78); ALKALINE PHOSPHATASE 87 U/L (45-117); BILIRUBIN,TOTAL 0.6 mg/dL (0.2-1.0); CREATININE 1.87 mg/dL (0.55-1.02); TOTAL PROTEIN 6.8 g/dL (6.4-8.2)
[2020-01-25 12:31] LABS: MD NO
[2020-01-25 12:56] LABS: ACETONE, SERUM Large (80mg/dL) (Negative)
--- NOTE | 2020-01-25 13:33 | NUR ---
PATIENT AMBULATED TO BATHROOM TO LEAVE URINE SAMPLE.
--- NOTE | 2020-01-25 13:37 | NUR ---
PATIENT WHEELED BACK FROM TRIAGE WITH CHIEF C/O EMESIS, AND ESOPHAGEAL PAIN. PATIENT STATES THIS HAS BEEN GOING ON FOR ABOUT 1 WEEK, DENIES FEVER. ERMD AT BEDSIDE FOR EVALUATION. CONNECTED TO VITALS MACHINE.
[2020-01-25] MEDS ORDERED: TRIA1TAB3 PO (13:43)
[2020-01-25] MEDS ORDERED: ONDA-89 PO (13:43)
[2020-01-25] MEDS ORDERED: FAMOTIDINE 20 MG/2 ML ONE (13:56)
[2020-01-25] MEDS ORDERED: METOCLOPRAMIDE 5 MG/ML, 2ML ONE ×2 (13:56→19:41)
[2020-01-25] MEDS ORDERED: LABETALOL 20 MG/4 ML ONE ×2 (13:57→19:37)
[2020-01-25] MEDS ORDERED: LABETALOL 5MG/ML, 20ML IVPush ONE (14:00)
[2020-01-25] MEDS ORDERED: SODIUM CHLORIDE 0.9% 1,000ML IVBOLUS ONE (14:00)
[2020-01-25] MEDS ORDERED: SODIUM CHLORIDE FLUSH 10ML SYR IVF ONE (14:00)
[2020-01-25] MEDS ORDERED: METOCLOPRAMIDE 5 MG/ML, 2ML IVPush ONE (14:00)
[2020-01-25] MEDS ORDERED: FAMOTIDINE 20 MG/2 ML IV ONE (14:00)
--- NOTE | 2020-01-25 14:51 | NUR ---
22 gauge IV STARTED RIGHT HAND BY MARY MEYER. PATIENT MEDICATED PER eMAR, CONNECTED TO REFUELING RAMP SUPERVISOR, WARM BLANKET PROVIDED, CALL LIGHT WITHIN REACH, NO SIGNS OF ACUTE DISTRESS.
[2020-01-25 14:58] LABS: MICROSCOPIC INDICATED
[2020-01-25] MEDS ORDERED: SODIUM CHLORIDE 0.9% 1,000 ML IV ONE (15:00)
--- NOTE | 2020-01-25 15:09 | NUR ---
ERMD AT BEDSIDE TO DISCUSS POC.
[2020-01-25] MEDS ORDERED: ENOXAPARIN 40 MG/0.4 ML ONE ×2 (16:13→16:45)
--- NOTE | 2020-01-25 16:20 | NUR ---
PATIENT RESTING IN GURNEY WITH EYES CLOSED, MOM AT BEDSIDE, CONNECTED TO CIRCUIT RECORDER, NO SIGNS OF ACUTE DISTRESS, CALL LIGHT WITHIN REACH.
[2020-01-25] MEDS ORDERED: ONDANSETRON ODT 4 MG PO PRN (16:30)
[2020-01-25] MEDS ORDERED: ACETAMINOPHEN 325 MG TABLET PO PRN (16:30)
[2020-01-25] MEDS: NS + 20MEQ KCL 1,000 ML IV SCH (16:47)
[2020-01-25] MEDS: ENOXAPARIN 40 MG/0.4 ML SQ SCH ×2 (16:47→16:53)
[2020-01-25 16:51] LABS: AMPHETAMINE SCREEN, URINE Negative (Negative); BARBITURATE SCREEN, URINE Negative (Negative); BENZODIAZEPINE SCREEN, URINE Negative (Negative); CANNABINOID SCREEN, URINE Negative (Negative); COCAINE SCREEN, URINE Negative (Negative); METHADONE SCREEN, URINE Negative (Negative); OPIATE SCREEN, URINE Negative (Negative)
[2020-01-25] MEDS ORDERED: ONDANSETRON 2MG/ML, 2ML ONE (17:48)
[2020-01-25] MEDS ORDERED: PANTOPRAZOLE 40 MG IV ONE (17:51)
[2020-01-25] MEDS: PANTOPRAZOLE 40 MG IV IVPush SCH (17:57)
[2020-01-25] MEDS: ONDANSETRON 2MG/ML, 2ML IVPush PRN (17:57)
--- NOTE | 2020-01-25 18:04 | NUR ---
I HAVE REQUESTED A PRN DOSE OF ENALAPRIL FROM PHARMACY FOR OUT OF RANGE BP. AWAITING MED
--- NOTE | 2020-01-25 18:23 | NUR ---
PATIENT RESTING IN [facility], CONNECTED TO SUPERVISING EDITOR TRAILER, REQUESTED CLEAR LIQUID DINNER TRAY.
--- NOTE | 2020-01-25 18:38 | NUR ---
PER DR. NETTLES'S NURSING INSTRUCTION, PATIENT CAN USE HOME GLUCOMETER TO CHECK BLOOD SUGAR, AND HER HOME INUSLIN PUMP TO ADMINISTER HOME INSULIN. PATIENT'S BLOOD SUGAR IS 225, 1 UNIT OF INSULIN ADMINISTERED VIA INSULIN PUMP. PATIENT MOVED TO HOSPITAL BED, DINNER TRAY ORDERED.
[2020-01-25] MEDS: ENALAPRILAT 1.25 MG/ML, 2ML IV PRN (18:40)
--- NOTE | 2020-01-25 19:07 | NUR ---
ICE CHIPS AND CLEAR LIQUID TRAY PROVIDED FOR PATIENT.
[2020-01-25] MEDS ORDERED: ACETAMINOPHEN 325 MG TABLET ONE (19:22)
[2020-01-25] MEDS: METOCLOPRAMIDE 5 MG/ML, 2ML IVPush PRN (19:42)
[2020-01-25] MEDS: LABETALOL 5MG/ML, 20ML IVPush PRN (19:43)
--- NOTE | 2020-01-25 19:48 | NUR ---
PATIENT MEDICATED PER eMAR, CONNECTED TO DIETITIAN TEACHER, CALL LIGHT WITHIN REACH, NO FURTHER NEEDS AT THIS TIME.
--- NOTE | 2020-01-25 20:29 | NUR ---
Tried calling report to floor RN, she will call back.
--- NOTE | 2020-01-25 21:05 | NUR ---
REPORT CALLED TO MARY BLEVINS ON MEDICAL TELEMETRY. PATIENT TRANSFERRED VIA HOSPITAL BED WITH REFERRAL AND INFORMATION AIDE, ALL PATIENT BELONGINGS GATHERED AND TAKEN TO FLOOR.
[2020-01-25] MEDS ORDERED: LABETALOL 100 MG TABLET ONE (21:59)
[2020-01-25 22:00] VITALS: BP 149/95
[2020-01-25] MEDS: LORazepam 1MG TABLET PO PRN (22:04)
[2020-01-25] MEDS: LABETALOL 200 MG TABLET PO SCH (22:04)
[2020-01-25] MEDS: ZOLPIDEM 5MG TABLET PO PRN (22:04)
[2020-01-25] MEDS ORDERED: HYDROmorphone 1 MG/ML, 1ML INJ IV ONE (22:30)
[2020-01-26] VITALS (10 sets, daily range): BP systolic 111–187; BP diastolic 72–121
[2020-01-26] MEDS: NS + 20MEQ KCL 1,000 ML IV SCH ×4 (00:20→23:00)
[2020-01-26] MEDS: ONDANSETRON 2MG/ML, 2ML IVPush PRN ×2 (04:03→11:57)
[2020-01-26 05:13] LABS: ANION GAP 4 mmol/L (5-15); CALCIUM 7.6 mg/dL (8.5-10.1); CHLORIDE 109 mmol/L (98-107)
[2020-01-26 05:25] LABS: BASOPHILS % (AUTO) 1 % (0-1); EOSINOPHILS % (AUTO) 0 % (1-7); LYMPHOCYTES % (AUTO) 17 % (22-44); MEAN CORPUSCULAR HEMOGLOBIN 28.7 pg (27.0-34.8); MEAN PLATELET VOLUME 7.4 fL (7.4-10.4); MONOCYTES % (AUTO) 8 % (2-9); NEUTROPHILS % (AUTO) 73 % (42-75); PLATELET COUNT 242 x10^3/uL (130-400); RED BLOOD COUNT 3.66 x10^6/uL (3.82-5.3); RED CELL DISTRIBUTION WIDTH 14.3 % (9.6-15.2)
[2020-01-26 05:46] LABS: MD NO
[2020-01-26] MEDS: PANTOPRAZOLE 40 MG IV IVPush SCH ×2 (06:12→18:12)
[2020-01-26] MEDS: METOCLOPRAMIDE 5 MG/ML, 2ML IVPush PRN (07:51)
[2020-01-26] MEDS ORDERED: LABETALOL 100 MG TABLET ONE ×2 (07:58→19:40)
[2020-01-26] MEDS ORDERED: KETOROLAC 30 MG/1 ML IM PRN (08:00)
[2020-01-26] MEDS: BUTALB/APAP/CAFFEINE 50MG/325MG/40MG PO PRN ×2 (08:07→19:44)
[2020-01-26] MEDS: LABETALOL 200 MG TABLET PO SCH ×2 (10:45→19:44)
[2020-01-26] MEDS: ENOXAPARIN 40 MG/0.4 ML SQ SCH (16:30)
[2020-01-26] MEDS: ENALAPRILAT 1.25 MG/ML, 2ML IV PRN (18:07)
[2020-01-26] MEDS: LORazepam 1MG TABLET PO PRN (21:18)
[2020-01-26] MEDS: ZOLPIDEM 5MG TABLET PO PRN (21:18)
[2020-01-26] MEDS: LABETALOL 5MG/ML, 20ML IVPush PRN (21:32)
[2020-01-27 02:00] VITALS: BP 119/65
[2020-01-27] MEDS: NS + 20MEQ KCL 1,000 ML IV SCH ×2 (03:30→10:26)
[2020-01-27 05:42] LABS: BASOPHILS % (AUTO) 1 % (0-1); EOSINOPHILS % (AUTO) 1 % (1-7); LYMPHOCYTES % (AUTO) 32 % (22-44); MEAN CORPUSCULAR HEMOGLOBIN 29.2 pg (27.0-34.8); MEAN CORPUSCULAR HGB CONC 33.4 g/dL (32.4-35.8); MEAN PLATELET VOLUME 7.2 fL (7.4-10.4); MONOCYTES % (AUTO) 7 % (2-9); NEUTROPHILS % (AUTO) 58 % (42-75); PLATELET COUNT 214 x10^3/uL (130-400); RED BLOOD COUNT 3.39 x10^6/uL (3.82-5.3)
[2020-01-27 05:51] LABS: MD NO
[2020-01-27] MEDS: PANTOPRAZOLE 40 MG IV IVPush SCH (05:54)
[2020-01-27 05:57] LABS: CHLORIDE 113 mmol/L (98-107)
[2020-01-27 06:02] LABS: ANION GAP 4 mmol/L (5-15); CALCIUM 7.6 mg/dL (8.5-10.1); CREATININE 1.54 mg/dL (0.55-1.02)
[2020-01-27 06:57] VITALS: BP 117/79
[2020-01-27] MEDS: LABETALOL 200 MG TABLET PO SCH (07:59)
[2020-01-27] MEDS ORDERED: ONDA4TAB13 PO (08:17)
[2020-01-27] MEDS ORDERED: CLON0.1T12 PO ×2 (08:24)
[2020-01-27] MEDS ORDERED: CLON0.1T2 PO (09:00)
== END 2020-01-27 11:00 | disposition home or self-care (01) | DRG 391 ==
LOC: ED 14:51 → SUATTDRO 15:35 → EDIP 16:27 → 4WST 21:22 → DCLOUNGE 01-27 10:55
PROVIDERS: ADMIT Internal Medicine; ATTEND Hospitalist
DX: K29.70 Gastritis, unspecified, without bleeding (principal); N17.0 Acute kidney failure with tubular necrosis; R65.10 Systemic inflammatory response syndrome (SIRS) of non-infectious origin without acute organ dysfunction; E10.65 Type 1 diabetes mellitus with hyperglycemia; E86.0 Dehydration; I10 Essential (primary) hypertension; Z79.4 Long term (current) use of insulin; Z88.5 Allergy status to narcotic agent
CPT/HCPCS: 36415; 71045; 80048; 80053; 80307; 81001; 81025; 82010; 82803; 82962; 83690; 83735; 84100; 84703; 85025; 87086; 93005; 96361; 96374; 96375; 99291; G0378; J1170; J1650; J1885; J2405; J3480; Q0162; C9113; J2765; J7030